=== PATIENT | male | born 1945 | race Caucasian/White ===

== ENCOUNTER → 2016-05-24 | Outpatient (CLI) | payer OTHER ==
[2016-05-24 08:22] LABS: ALT 29 U/L (21-72); AST 26 U/L (17-59); Cholesterol 184 mg/dL (<200); HDL Cholesterol 49 mg/dL (40-60); Triglycerides 187 mg/dL (<150)
== END | disposition home or self-care (01) ==
LOC: LABWHC1 07:37
PROVIDERS: ATTEND Internal Medicine Interventional Cardiology
DX: E78.2 Mixed hyperlipidemia (principal)
CPT/HCPCS: 36415; 80061; 84450; 84460

== ENCOUNTER → 2016-06-26 | Outpatient (CLI) | payer OTHER ==
[2016-06-26 10:38] LABS: CH 32.9; CHCM 34.9; HCT 41.1 % (39.0-53.0); HDW 3.15; HGB 14.3 gm/dL (13.0-17.5); MCH 32.9 pg (25.0-35.0); MCHC 34.7 g/dL (31.0-37.0); MCV 94.9 fL (80.0-100.0); Mean Platelet Volume 8.5; RBC 4.33 m/uL (4.30-5.90); RDW 13.3 % (11.5-15.5); WBC 4.1 k/uL (3.8-10.6)
[2016-06-26 10:59] LABS: Anion Gap 7 mmol/L; Blood Urea Nitrogen 20 mg/dL (9-20); Carbon Dioxide 29 mmol/L (22-30); Chloride 105 mmol/L (98-107); Non-African American GFR(MDRD) >60 (>60 ml/min/1.73 sqM); Potassium 4.7 mmol/L (3.5-5.1); Sodium 141 mmol/L (137-145)
== END | disposition home or self-care (01) ==
LOC: LABPAT 10:20
PROVIDERS: ATTEND Internal Medicine Interventional Cardiology
DX: Z01.812 Encounter for preprocedural laboratory examination (principal); I73.9 Peripheral vascular disease, unspecified
CPT/HCPCS: 80051; 82565; 84520; 85027

== ENCOUNTER 2016-07-04 07:12 | Day surgery (SDC) | payer OTHER ==
[2016-06-30 13:11] VITALS: BMI 33.0
[~2016-07-04 07:12] MED LIST: SODIUM CHLORIDE 0.9% 1,000 ML in EMPTY BAG 1 BAG IV ONE
[2016-07-04 07:48] VITALS: RESP 16; TEMP 98.7
[2016-07-04] MEDS ORDERED: METOPROLOL TARTRATE 5 MG/5 ML VIAL IVP ONE (08:03)
[2016-07-04] MEDS ORDERED: hydrALAZINE HCL 20 MG/ML 1 ML VIAL ONE (08:03)
[2016-07-04 08:07] LABS: Glucose,Whole Blood 178 mg/dL (75-99)
[2016-07-04] MEDS ORDERED: MIDAZOLAM 2 MG/2 ML VIAL IV ONE (10:06)
[2016-07-04] MEDS ORDERED: LIDOCAINE 2% INJ 20 MG/ML SQ ONE (10:09)
[2016-07-04] MEDS ORDERED: HYDROmorphone 2 MG/ML 1 ML SYRINGE IV ONE (10:14)
[2016-07-04] MEDS ORDERED: IODIXANOL 320 MG/ML 100 ML INTRAARTER ONE (10:21)
[2016-07-04] MEDS ORDERED: SODIUM CHLORIDE 0.9% 1,000 ML IV SCH (10:30)
--- NOTE | 2016-07-04 11:10 | CC ---
ABDOMINAL AORTOGRAM AND BILATERAL LOWER EXTREMITY DATE OF SERVICE: 07/04/2016 PERFORMING PHYSICIAN: JESSICA CARRERO MD, SALES ACCOUNT EXECUTIVE. PROCEDURE PERFORMED: 1. An abdominal aortogram. 2. Bilateral lower extremity runoff. INDICATION: This is a pleasant 71-year-old male patient who sees Dr. Rodrigues and Dr. Gonsales as an outpatient who was experiencing bilateral lower extremity discomfort, most prominent on the right side. The symptoms were severe enough to interfere with his daily activities. He had what seems to be a fem-pop bypass on the right side, was performed by Dr. Pollack a long time ago. The Doppler showed the occlusion of the fem-pop bypass. He was brought today to undergo an abdominal aortogram and bilateral lower extremity runoff. APPROACH: Left common femoral artery. COMPLICATIONS: None. LEVEL OF SEDATION: Moderate. PROCEDURE DESCRIPTION: After obtaining an informed consent, the patient was brought to the Cardiac Fire Protection Engineering Technician. The left common femoral artery was cannulated using micropuncture technique. The micropuncture wire passed easily, then I placed 6 Kenyan sheath in the left common femoral artery. Subsequently, I did an abdominal aortogram and bilateral lower extremity runoff using 5 Kenyan pigtail catheter which was initially placed at the level of the renal arteries, then it was pulled into above the bifurcation of the aorta to right and left common iliac arteries. The procedure was completed without any complication. SELECTIVE PERIPHERAL ANGIOGRAM: 1. The abdominal aorta appeared to have mild disease only. 2. COMMON ILIAC ARTERIES: The right and left common iliac arteries appeared to be calcified with mild disease only. 3. THE INTERNAL ILIAC ARTERIES: The right and left internal iliac arteries are patent. 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 4. THE EXTERNAL ILIAC ARTERIES: The right and left external iliac arteries appeared to have mild disease only. 5. THE COMMON FEMORAL ARTERIES: The right common femoral artery appeared to have a lesion just by the inguinal ligament, seems to be in the range of 70%. The left common femoral artery appeared to have mild disease only. 6. THE PROFUNDA: The right and left profunda are patent. 7. THE SFA: The right SFA appeared to be stumped right by the ostium and reconstitutes by the popliteal. The left SFA appeared to have diffuse disease up to about 70% to 80% in the proximal and midportion. 8. THE POPLITEAL: The right popliteal is occluded and the left popliteal appeared to have mild to moderate diffuse disease. 9. BELOW THE KNEE: There are 3 vessels runoff below the knee bilaterally with AT, PT and peroneal. CONCLUSION: 1. Mild aortoiliac disease. 2. Severe disease involving the right common femoral artery. 3. Occluded right superficial femoral artery. 4. Critical disease involving the left superficial femoral artery. 5. Normal runoff below the knee bilaterally. PLAN: 1. The patient will be scheduled to undergo a COLLAR FUSER of the right common femoral artery and at the same time attempting going through the right SFA. 2. Down the line, he needs to have a COLLAR FUSER of the left SFA as well.
--- NOTE | 2016-07-04 11:33 | IR ---
Fluoroscopy HISTORY: Pain 3.1 minutes fluoroscopy time supplied to the referring clinician. 117 intraoperative C-arm images do cument the procedure. See dictated report from cardiology.
[2016-07-04 13:36] VITALS: BP 147/67; PULSE 64
[2016-07-04 15:22] LABS: Glucose,Whole Blood 217 mg/dL (75-99)
== END 2016-07-04 18:13 | disposition home or self-care (01) ==
LOC: CATHCVL 07:12
PROVIDERS: ATTEND Internal Medicine Interventional Cardiology
DX: I70.311 Atherosclerosis of unspecified type of bypass graft(s) of the extremities with intermittent claudication, right leg (principal); I70.213 Atherosclerosis of native arteries of extremities with intermittent claudication, bilateral legs; Z87.891 Personal history of nicotine dependence; Z95.1 Presence of aortocoronary bypass graft; Z95.2 Presence of prosthetic heart valve; I10 Essential (primary) hypertension; E11.9 Type 2 diabetes mellitus without complications; Z79.4 Long term (current) use of insulin; E78.2 Mixed hyperlipidemia; Z79.02 Long term (current) use of antithrombotics/antiplatelets; Z79.82 Long term (current) use of aspirin; Z79.899 Other long term (current) drug therapy
CPT/HCPCS: 36200; 75625; 75716; C1769 ×5; C1894; J2001; J2250; J1170; J0360; Q9967

== ENCOUNTER → 2016-07-27 | Outpatient (CLI) | payer OTHER ==
[2016-07-27 11:46] LABS: CH 32.9; CHCM 33.2; HCT 46.9 % (39.0-53.0); HDW 2.72; HGB 15.2 gm/dL (13.0-17.5); MCH 32.3 pg (25.0-35.0); MCHC 32.4 g/dL (31.0-37.0); MCV 99.6 fL (80.0-100.0); Mean Platelet Volume 8.3; RBC 4.71 m/uL (4.30-5.90); RDW 13.4 % (11.5-15.5); WBC 4.5 k/uL (3.8-10.6)
[2016-07-27 11:56] LABS: Anion Gap 9 mmol/L; Blood Urea Nitrogen 18 mg/dL (9-20); Carbon Dioxide 24 mmol/L (22-30); Chloride 108 mmol/L (98-107); Non-African American GFR(MDRD) >60 (>60 ml/min/1.73 sqM); Potassium 4.9 mmol/L (3.5-5.1); Sodium 141 mmol/L (137-145)
== END | disposition home or self-care (01) ==
LOC: LABWHC1 11:15
PROVIDERS: ATTEND Internal Medicine Interventional Cardiology
DX: Z01.812 Encounter for preprocedural laboratory examination (principal); I73.9 Peripheral vascular disease, unspecified
CPT/HCPCS: 36415; 80051; 82565; 84520; 85027

== ENCOUNTER 2016-08-02 10:07 | Day surgery (SDC) | payer OTHER ==
[2016-07-28 14:59] VITALS: BMI 34.4
[~2016-08-02 10:07] MED LIST changes: +ALPRAZolam 0.25 MG TAB PO PRN; +ASPIRIN 325 MG TAB PO STA
[2016-08-02 10:33] LABS: Glucose,Whole Blood 163 mg/dL (75-99)
[2016-08-02] MEDS ORDERED: LIDOCAINE 2% INJ 20 MG/ML SQ ONE (12:12)
[2016-08-02] MEDS ORDERED: MIDAZOLAM 2 MG/2 ML VIAL IV ONE (12:13)
[2016-08-02] MEDS ORDERED: HEPARIN SODIUM 1,000 UNIT/ML VIAL IV ONE ×2 (12:18→14:59)
[2016-08-02] MEDS ORDERED: SODIUM CHLORIDE 0.9% 500 ML with niCARdipine 6.25 MG, NITROGLYCERIN-D5W PMX 0.05 MG, HE... IV ONE ×8 (12:21→15:30)
[2016-08-02] MEDS: fentaNYL (PF) 50 MCG/ML 2 ML AMP IV ONE ×2 (12:47→13:20)
[2016-08-02] MEDS: MIDAZOLAM 2 MG/2 ML VIAL IVP ONE ×3 (13:20→15:42)
[2016-08-02] MEDS ORDERED: MIDAZOLAM 2 MG/2 ML VIAL IVP ONE (13:20)
[2016-08-02] MEDS: HYDROmorphone 2 MG/ML 1 ML SYRINGE IV ONE ×2 (13:41→15:07)
[2016-08-02] MEDS: NITROGLYCERIN 1000MCG/10ML SYRINGE INTRAARTER ONE ×3 (15:23→16:31)
[2016-08-02] MEDS: niCARdipine Syringe (1,000 mcg/10 mL) INTRAARTER ONE ×3 (15:23→16:31)
[2016-08-02] MEDS: HYDROmorphone 2 MG/ML 1 ML SYRINGE IVP ONE ×2 (16:20→16:49)
[2016-08-02] MEDS ORDERED: CLOPIDOGREL 75 MG TAB PO ONE (16:45)
[2016-08-02] MEDS ORDERED: IODIXANOL 320 MG/ML 100 ML INTRAARTER ONE (16:49)
[2016-08-02] MEDS ORDERED: SODIUM CHLORIDE 0.9% 1,000 ML IV SCH (17:00)
[2016-08-02 17:25] LABS: Glucose,Whole Blood 131 mg/dL (75-99)
[2016-08-02] MEDS ORDERED: ATROPINE SULFATE 0.1 MG/ML 10ML SYRINGE ONE (20:08)
[2016-08-02] MEDS: HYDROcodone/APAP 10-325MG 1 EACH TAB PO PRN (20:09)
[2016-08-02 20:53] LABS: Glucose,Whole Blood 166 mg/dL (75-99)
[2016-08-02] MEDS: LOSARTAN 25 MG TAB PO SCH (20:57)
[2016-08-02] MEDS: CILOSTAZOL 100 MG TAB PO SCH (20:57)
[2016-08-02] MEDS: METOPROLOL TARTRATE 50 MG TAB PO SCH (20:57)
[2016-08-02] MEDS ORDERED: METHOCARBAMOL 750 MG TAB PO SCH (21:00)
[2016-08-02] MEDS ORDERED: INSULIN GLARGINE 100 UNIT/ML 10 ML VIAL SQ SCH (21:00)
[2016-08-02] MEDS ORDERED: ATORVASTATIN 80 MG TAB PO SCH (21:00)
[2016-08-03] MEDS: HYDROcodone/APAP 10-325MG 1 EACH TAB PO PRN (02:02)
[2016-08-03 05:58] LABS: Glucose,Whole Blood 170 mg/dL (75-99)
[2016-08-03 06:27] LABS: Non-African American GFR(MDRD) >60 (>60 ml/min/1.73 sqM)
[2016-08-03] MEDS ORDERED: CLOPIDOGREL 75 MG TAB PO SCH (09:00)
[2016-08-03] MEDS ORDERED: MONTELUKAST 10 MG TAB PO SCH (09:00)
[2016-08-03] MEDS ORDERED: METHOCARBAMOL 750 MG TAB PO SCH (09:00)
[2016-08-03] MEDS ORDERED: ASPIRIN 325 MG TAB PO SCH (09:00)
[2016-08-03] MEDS ORDERED: MAGNESIUM OXIDE 400 MG TAB PO SCH (09:00)
[2016-08-03] MEDS: CILOSTAZOL 100 MG TAB PO SCH (09:05)
[2016-08-03] MEDS: LOSARTAN 25 MG TAB PO SCH (09:06)
[2016-08-03] MEDS: METOPROLOL TARTRATE 50 MG TAB PO SCH (09:07)
[2016-08-03 11:30] VITALS: BP 135/65; PULSE 60; RESP 16; TEMP 975
[2016-08-03] MEDS ORDERED: MULTIVITAMINS, THERA 1 EACH TAB PO SCH (12:00)
[2016-08-03 12:01] LABS: Glucose,Whole Blood 138 mg/dL (75-99)
--- NOTE | 2016-08-05 11:48 | DS ---
DATE OF ADMISSION: 08/02/2016 DATE OF DISCHARGE: 08/03/2016 BRIEF HISTORY: This is a 71-year-old who was admitted to the hospital and underwent successful recannulization totally occluded fem to popliteal bypass. We ended doing stenting of the distal as well as proximal anastomosis. The procedure was performed from the left groin. The left groin was soft and nontender and without any bruises. The patient is going to be discharged home on dual antiplatelet therapy and statin. I will follow up with the patient in a week. The patient will be sent back to be seen and evaluated and followed by Dr. Rodrigues.
--- NOTE | 2016-08-07 22:05 | PCN ---
DATE OF PROCEDURE: 08/02/2016 PERFORMING PHYSICIAN: Chepe San M.D., economic consultant. PROCEDURES PERFORMED: 1. Selective right [id number] angiogram. 2. Selective right popliteal angiogram. 3. Selective right common femoral artery angiogram. 4. Selective right posterior tibial angiogram. 5. Intravascular ultrasound (IVUS) of the right common femoral artery. 6. Successful balloon angioplasty and stenting of the right femoropopliteal bypass. 7. Selective left common femoral artery angiogram. INDICATION: This is a pleasant 71-year-old gentleman who sees Dr. Rodrigues as an outpatient who is known to have severe PAD where he underwent in the past right femoropopliteal bypass. He was experiencing severe right leg discomfort related to claudication. He underwent an arterial duplex study which showed occluded right SFA with occluded right femoropopliteal bypass as well. He underwent a peripheral angiogram which confirmed the Doppler finding. He was brought today to undergo a ISSUER of the right SFA. APPROACH: Left common femoral artery. COMPLICATIONS: None. LEVEL OF SEDATION: Moderate, with sedation length of 4 hours. PROCEDURE DESCRIPTION: After obtaining informed consent, the patient was brought to the biological lab technician. The left common femoral artery was cannulated using micropuncture technique. The micropuncture wire passed easily. I placed initially an 11 cm 6 Rwandan sheath in the left common femoral artery. Subsequently I selected the right profunda using a 5 Rwandan RIM catheter with 0.035 Advantage wire. After that I exchanged my 11 cm sheath for a 70 cm sheath using an 0.035 Advantage wire. The tip of the sheath was positioned in the right external iliac artery. At that point anticoagulation was initiated using heparin, and the patient was given weight -based heparin. I attempted to cross the right SFA using multiple wires, including 0.014 Advantage wire, 0.014 Astato wire, 0.018 Neeraj wire, 0.018 Victory 18 wire, as well as an 0.035 Glidewire. Every time I advanced the wire, the wire went into the right femoropopliteal and would not cross the right SFA. At that point I decided to do an IVUS of the right common femoral artery to assess the actual stump of the right SFA. We did an intravascular ultrasound over an 0.014 wire, and I was able to see the small stump of the right SFA, and every time I fired the needle through the Bioneer device with IVUS, the needle was not able to cross that calcium which was seen by the ostial SFA. At that point I decided to come from down, so I accessed the right posterior tibial artery by putting in a 4 Rwandan sheath. I did continuously infuse heparin, Verapamil, and nitroglycerin. Subsequently I tried to cross the right SFA using an 0.014, 0.018, and 0.035 wire, and I was unable. At a matter of fact, I was able to go through the right femoral bypass from below and I was able to advance my wire all the way to the right common femoral artery. At that point I was able to snare my 0.014 Advantage wire from above. Then I exchanged my 0.014 wire for an 0.018 stainless steel wire. I did balloon angioplasty of the right femoropopliteal using 4.0 balloon. Subsequently I deployed 2 stents in the distal anastomosis and 1 stent in the proximal anastomosis. The body of the graft was looking decent. For the distal anastomosis I deployed a 5.5 x 80 and 6.0 x 80 Supera self-expandable stents. For the proximal anastomosis I deployed a 7.0 x 60 mm. The following angiogram showed excellent angiographic results. At that point the procedure was completed without any complication. POST-PROCEDURE MANAGEMENT: 1. Dual antiplatelet therapy. 2. Surveillance duplex study. 3. Follow up with the patient.
--- NOTE | 2016-08-09 13:21 | IR ---
EXAMINATION TYPE: IR stent intravas non coronary DATE OF EXAM: 08/08/2016 COMPARISON: NONE HISTORY: Peripheral vascular occlusive disease. Fluoroscopy was provided to the referring clinician. See dictated report from cardiology.
== END 2016-08-03 13:05 | disposition home or self-care (01) ==
LOC: CATHCVL 10:07 → 6SEL 16:37 → CATHCVL 08-03 13:05
PROVIDERS: ATTEND Internal Medicine Interventional Cardiology
DX: I77.9 Disorder of arteries and arterioles, unspecified (principal); T82.898A Other specified complication of vascular prosthetic devices, implants and grafts, initial encounter; I73.9 Peripheral vascular disease, unspecified; I10 Essential (primary) hypertension; E78.2 Mixed hyperlipidemia; E11.9 Type 2 diabetes mellitus without complications; I45.10 Unspecified right bundle-branch block; I25.10 Atherosclerotic heart disease of native coronary artery without angina pectoris; Z95.1 Presence of aortocoronary bypass graft; Z95.2 Presence of prosthetic heart valve; Z79.82 Long term (current) use of aspirin; Z79.4 Long term (current) use of insulin; Z79.891 Long term (current) use of opiate analgesic; Z79.899 Other long term (current) drug therapy; Z87.891 Personal history of nicotine dependence
CPT/HCPCS: 37226; 37252; 82565; 99152; 99153 ×17; C1769 ×14; C1894 ×2; C1773; C1725 ×3; C1876 ×2; C1887; C1753 ×2; J2001; J2250; J1170; J1644 ×2; Q9967; J3010

== ENCOUNTER → 2016-09-18 | Outpatient (CLI) | payer OTHER ==
[2016-09-18 08:07] LABS: ALT 42 U/L (21-72); AST 26 U/L (17-59); Cholesterol 170 mg/dL (<200); HDL Cholesterol 46 mg/dL (40-60); Triglycerides 147 mg/dL (<150)
== END | disposition home or self-care (01) ==
LOC: LABWHC1 07:23
PROVIDERS: ATTEND Internal Medicine Interventional Cardiology
DX: E78.2 Mixed hyperlipidemia (principal)
CPT/HCPCS: 36415; 80061; 84450; 84460

== ENCOUNTER → 2017-03-07 | Outpatient (CLI) | payer OTHER ==
--- NOTE | 2017-03-07 08:36 | XR ---
EXAMINATION TYPE: XR chest 2V DATE OF EXAM: 03/07/2017 COMPARISON: Prior chest x-ray 03/11/2011 HISTORY: Cough and congestion TECHNIQUE: Frontal and lateral views of the chest are obtained. FINDINGS: Patient is rotated and post median sternotomy. Heart size may be accentuated by technique. Patchy density at the left lung base, lingula may represent chronic change. Interval improvement in posterior blunting the costophrenic angle. No pneumothorax. Pulmonary vascularity and ajith not signif icantly changed. There are coronary artery calcifications. Question bronchial wall thickening. IMPRESSION: Correlate for bronchitis, follow-up as indicated. Chronic cardiomegaly.
== END | disposition home or self-care (01) ==
LOC: RADXRMAIN 06:42
PROVIDERS: ATTEND Family Medicine
DX: I51.7 Cardiomegaly (principal)
CPT/HCPCS: 71046

== ENCOUNTER → 2017-03-20 | Outpatient (CLI) | payer MEDICARE ==
[2017-03-20 07:04] LABS: Blood Urea Nitrogen 28 mg/dL (9-20)
--- NOTE | 2017-03-20 09:12 | CT ---
EXAMINATION TYPE: CT chest w con DATE OF EXAM: 03/20/2017 COMPARISON: Chest radiograph dated 03/07/2017 HISTORY: cough, abn CXR CT DLP: 807 mGycm. Automated Exposure Control for Dose Reduction was Utilized. TECHNIQUE: CT scan of the thorax is performed following with IV Contrast, patient injected with 100 mL of Omnipaque 300. FINDINGS: LUNGS: Somewhat low lung volumes accentuate the pulmonary vasculature. The lungs are grossly clear, t here is no concerning parenchymal mass. 3 mm pulmonary nodule along the right minor fissure is seen o n axial image 21, coronal image 33, and sagittal image 50. This may represent a. Fissural lymph node. Scattered areas of subsegmental atelectasis are noted, predominating dependently. No focal consolida tion is present. No bronchiectasis. There is no pleural effusion or pneumothorax seen. The tracheobr onchial tree is patent. MEDIASTINUM: There are no greater than 1 cm hilar or mediastinal lymph nodes. The heart is enlarged. Post-CABG changes of the chest are seen with severe knik coronary artery calcifications. No perica rdial effusion is seen. Ascending thoracic aorta and main pulmonary artery are within normal limits of size. OTHER: Small splenule seen adjacent to the knik spleen. Multiple gallstones layer within the gallbl adder body and neck. Left upper pole 1.9 cm partially exophytic renal cyst is incidentally noted. Mil d pancreatic atrophy is seen. Moderate calcific changes of the visualized abdominal aorta and its bra nches are present. Moderate multilevel degenerative changes of the thoracic spine are present. IMPRESSION: 1. 3 mm perifissural right pulmonary nodule favored to represent a benign perifissural lymph node. Fo llow-up CT could be performed in 12 months to evaluate for stability. 2. No focal consolidation, pleural effusion or pneumothorax. 3. Cholelithiasis and left renal cyst.
== END | disposition home or self-care (01) ==
LOC: RADCTMAIN 06:31
PROVIDERS: ATTEND Internal Medicine Sleep Medicine
DX: R91.1 Solitary pulmonary nodule (principal)
CPT/HCPCS: 82565; 84520; 71260; 36415; Q9967

== ENCOUNTER 2017-06-22 12:44 | Inpatient (IN) | payer MEDICARE ==
[2017-06-22] MEDS ORDERED: IBUPROFEN 600 MG TAB PO STA (13:35)
[2017-06-22] MEDS ORDERED: ACETAMINOPHEN TAB 500 MG TAB PO STA (13:35)
[2017-06-22] MEDS ORDERED: ceFAZolin IN SWFI 2 GM/20 ML SYRINGE IVP STA (13:38)
[2017-06-22] MEDS ORDERED: SODIUM CHLORIDE 0.45% 1,000 ML IV STA (13:40)
--- NOTE | 2017-06-22 14:03 | XR ---
EXAMINATION TYPE: XR foot complete LT DATE OF EXAM: 06/22/2017 COMPARISON: NONE HISTORY: First digit pain TECHNIQUE: Three views are submitted. FINDINGS: There is a comminuted intra-articular fracture of the distal phalanx first digit. Arthropathy of the first MTP joint noted. Calcaneal spurs are seen. Vascular calcifications noted. IMPRESSION: 1. Comminuted intra-articular fracture distal phalanx first digit.
--- NOTE | 2017-06-22 14:13 | ED ---
Lower Extremity Injury HPI <Jovany Brown - Last Filed: 06/22/17 15:02> - General Source: patient, RN notes reviewed, old records reviewed Mode of arrival: ambulatory Limitations: no limitations <Ana MCecelia - Last Filed: 06/22/17 15:25> - General Chief Complaint: Extremity Injury, Lower Stated Complaint: Toe injury Time Seen by Provider: 06/22/17 13:15 - History of Present Illness Initial Comments: This patient is a 72-year-old male with history of left great toe injury. He reports that 2 days ago he dropped a heavy piece of the tire and on his toe. He reports that he is diabetic and initially did not feel much pain from the injury. He came inside the house stenosis toes black and blue at that time. Yesterday followed up with his primary care provider and had an x-ray completed which he reported that there was fractures. There is evidence of some abrasions around the toe. He reports that his toe developed a significant blood blister and then popped. He went today to be reevaluated by his PCP. They sent him here due to an open fracture at this time. He does have a low- grade temperature. He has had no history of diabetic ulcers or infections. He does have neuropathy. He reports blood sugars have been running okay, within the mid 200s. (Cecelia Viramontes) - Related Data Home Medications Medication Instructions Recorded Confirmed HYDROcodone/APAP 10-325MG [[place] 1 tab PO QID PRN 04/23/14 06/22/17 10-325] Insulin Aspart [NovoLOG See Protocol SQ ACHS 04/23/14 06/22/17 (formulary)] Insulin Glargine [Lantus] 65 unit SQ HS 04/23/14 06/22/17 Methocarbamol [Robaxin] 750 mg PO TID 04/23/14 06/22/17 Metoprolol Tartrate [Lopressor] 50 mg PO BID 04/23/15 06/22/17 Montelukast [Singulair] 10 mg PO HS 04/23/15 06/22/17 Atorvastatin [Lipitor] 80 mg PO HS 06/30/16 06/22/17 Magnesium Oxide [Mag-Ox] 400 mg PO DAILY 06/30/16 06/22/17 Aspirin EC [Ecotrin] 325 mg PO DAILY 06/22/17 06/22/17 Cephalexin [Keflex] 500 mg PO Q6HR 06/22/17 06/22/17 Isosorbide Mononitrate ER [Imdur] 60 mg PO DAILY 06/22/17 06/22/17 Losartan Potassium 100 mg PO DAILY 06/22/17 06/22/17 Multivit-Min/FA/Lycopen/Lutein 1 tab PO DAILY 06/22/17 06/22/17 [Centrum Silver Men Tablet] Ranitidine HCl [Zantac] 150 mg PO BID 06/22/17 06/22/17 Previous Rx's Medication Instructions Recorded Clopidogrel [Plavix] 75 mg PO DAILY #90 tab 08/03/16 Allergies Allergy/AdvReac Type Severity Reaction Status Date / Time No Known Allergies Allergy Verified 06/22/17 13:38 Review of Systems ROS Other: All systems not noted in ROS Statement are negative. <Jovnay Brown - Last Filed: 06/22/17 15:02> ROS Other: All systems not noted in ROS Statement are negative. <Cecelia Viramontes - Last Filed: 06/22/17 15:25> ROS Statement: Those systems with pertinent positive or pertinent negative responses have been documented in the HPI. Past Medical History Past Medical History: Coronary Artery Disease (CAD), CVA/TIA, Diabetes Mellitus , Hyperlipidemia, Hypertension, Osteoarthritis (OA) Additional Past Medical History / Comment(s): CAD status post CABG with SVG to OM 2 and SVG to RCA in 1998 and 2009, AVR, PAD,diabetic neuropathy. History of Any Multi-Drug Resistant Organisms: None Reported Past Surgical History: Adenoidectomy, Cardiac Valve Replacement, Coronary Bypass /CABG, Heart Catheterization, Joint Replacement, Tonsillectomy Additional Past Surgical History / Comment(s): CABG 2 SVG to OM 2 and SVG to RCA, AVR, right leg femoral pop bypass 1995, left PTBA 1995, aortic stent, colonoscopy 2012 showed colonic polyps, left carotid endarterectomy 1998. TOTAL LEFT HIP, JESSEE CATARACT SX Past Anesthesia/Blood Transfusion Reactions: No Reported Reaction Past Psychological History: No Psychological Hx Reported Smoking Status: Former smoker Past Alcohol Use History: None Reported Past Drug Use History: None Reported - Past Family History Mother Family Medical History: Cancer, Pulmonary Embolus Additional Family Medical History / Comment(s): ESOPHAGUS Father Family Medical History: Coronary Artery Disease (CAD), Diabetes Mellitus Brother(s) Family Medical History: No Reported History Sister(s) Family Medical History: No Reported History Son(s) Family Medical History: No Reported History Daughter(s) Family Medical History: No Reported History <Cecelia Viramontes - Last Filed: 06/22/17 15:25> General Exam <Jovany Brown - Last Filed: 06/22/17 15:02> Limitations: no limitations General appearance: alert, in no apparent distress Head exam: Present: atraumatic, normocephalic, normal inspection Eye exam: Present: normal appearance ENT exam: Present: normal exam, mucous membranes moist Neck exam: Present: normal inspection. Absent: tenderness, meningismus, lymphadenopathy Respiratory exam: Present: normal lung sounds bilaterally. Absent: respiratory distress, wheezes, rales, rhonchi, stridor Cardiovascular Exam: Present: regular rate, normal rhythm, normal heart sounds. Absent: systolic murmur, diastolic murmur, rubs, gallop, clicks GI/Abdominal exam: Present: soft, normal bowel sounds. Absent: distended, tenderness, guarding, rebound, rigid Left Ankle exam: Present: normal inspection, full ROM Foot/Toe exam: Present: tenderness, swelling, abrasion (Patient has evidence of 2 abrasions over the right great toe where the blood blister had opened.), erythema (Patient is some minor erythema extending from the great toe of the dorsum of the foot. This is outlined. Right great toe is very swollen and ecchymotic. Pain with range of motion. The rest the toes appear within normal limits.). Absent: normal inspection, full ROM Neurovascular tendon exam: Present: no vascular compromise Gait: observed and limited by pain Back exam: Present: normal inspection Neurological exam: Present: alert, oriented X3, CN II-XII intact Psychiatric exam: Present: normal affect, normal mood <Cecelia Viramontes - Last Filed: 06/22/17 15:25> - General Exam Comments Initial Comments: 72-year-old male. Alert. No acute distress. (Cecelia Viramontes) Course <Jovany Brown - Last Filed: 06/22/17 15:02> <Cecelia Viramontes - Last Filed: 06/22/17 15:25> Vital Signs 06/22/17 13:06 Temperature 99.8 F H Pulse Rate 69 Respiratory 18 Rate Blood Pressure 146/61 O2 Sat by Pulse 98 Oximetry - Reevaluation(s) Reevaluation #1: 06/22/17 15:02 Patient was reevaluated by myself, Dr. Brown. Patient did drop a brake rotor on his left great toe several days ago. Patient does have cellulitis extending up towards the ankle. Patient does have swelling and discoloration, dark red of the toe. There is some superficial skin breakdown from patient reported blister. Patient states he did see Dr. Gonsales and was sent for admission. Case was discussed in detail with Dr. Castle, who will admit for Dr. Gonsales. She does recommend Zosyn and vancomycin as well as consult with Dr. Willis. Patient does not meet sepsis criteria. (Jovayn Brown) Medical Decision Making - Lab Data Result diagrams: 06/22/17 14:00 06/22/17 14:00 <Jovany Brown - Last Filed: 06/22/17 15:02> - Lab Data Result diagrams: 06/22/17 14:00 06/22/17 14:00 - Radiology Data Radiology results: report reviewed <Cecelia Viramontes - Last Filed: 06/22/17 15:25> - Medical Decision Making 72-year-old male presents with left great toe pain. He dropped a heavy piece of equipment on Sunday. He went to his primary care doctor and was diagnosed with fracture. He had a blood blister that now open. He was sent here further evaluation due to concerns for possible open fracture. He did have a low-grade temperature 99.9. Some minor erythema going up the foot. I did give the patient 2 g of Kefzol IV. Patient's labwork was reviewed and relatively unremarkable. Normal white blood cell count. Currently pending CRP. Patient will be started on IV vancomycin and Zosyn. Dr. Brown also examined the patient. At this time I'll put the patient with bacitracin and a dressing over the foot. Dr. Brown discussed the case with Dr. Castle. Consults infectious disease Dr. Willis. (Cecelia Viramontes) - Lab Data Lab Results 06/22/17 06/22/17 06/22/17 Range/Units 14:00 14:00 14:00 WBC 6.7 (3.8-10.6) k/uL RBC 3.99 L (4.30-5.90) m/uL Hgb 12.5 L (13.0-17.5) gm/dL Hct 37.4 L (39.0-53.0) % MCV 93.8 (80.0-100.0) fL MCH 31.4 (25.0-35.0) pg MCHC 33.5 (31.0-37.0) g/dL RDW 13.4 (11.5-15.5) % Plt Count 178 (150-450) k/uL Neutrophils % 76 % Lymphocytes % 12 % Monocytes % 8 % Eosinophils % 3 % Basophils % 0 % Neutrophils # 5.1 (1.3-7.7) k/uL Lymphocytes # 0.8 L (1.0-4.8) k/uL Monocytes # 0.5 (0-1.0) k/uL Eosinophils # 0.2 (0-0.7) k/uL Basophils # 0.0 (0-0.2) k/uL Sodium 141 (137-145) mmol/L Potassium 4.6 (3.5-5.1) mmol/L Chloride 106 (98-107) mmol/L Carbon Dioxide 24 (22-30) mmol/L Anion Gap 11 mmol/L BUN 18 (9-20) mg/dL Creatinine 0.80 (0.66-1.25) mg/dL Est GFR (CKD-EPI)AfAm >90 (>60 ml/min/1.73 sqM) Est GFR (CKD-EPI)NonAf >90 (>60 ml/min/1.73 sqM) Glucose 220 H (74-99) mg/dL Plasma Lactic Acid [place]ton 1.5 (0.7-2.0) mmol/L Calcium 8.9 (8.4-10.2) mg/dL Total Bilirubin 0.8 (0.2-1.3) mg/dL AST 22 (17-59) U/L ALT 24 (21-72) U/L Alkaline Phosphatase 95 (38-126) U/L C-Reactive Protein (<10.0) mg/L Total Protein 5.8 L (6.3-8.2) g/dL Albumin 3.4 L (3.5-5.0) g/dL 06/22/17 Range/Units 14:00 WBC (3.8-10.6) k/uL RBC (4.30-5.90) m/uL Hgb (13.0-17.5) gm/dL Hct (39.0-53.0) % MCV (80.0-100.0) fL MCH (25.0-35.0) pg MCHC (31.0-37.0) g/dL RDW (11.5-15.5) % Plt Count (150-450) k/uL Neutrophils % % Lymphocytes % % Monocytes % % Eosinophils % % Basophils % % Neutrophils # (1.3-7.7) k/uL Lymphocytes # (1.0-4.8) k/uL Monocytes # (0-1.0) k/uL Eosinophils # (0-0.7) k/uL Basophils # (0-0.2) k/uL Sodium (137-145) mmol/L Potassium (3.5-5.1) mmol/L Chloride (98-107) mmol/L Carbon Dioxide (22-30) mmol/L Anion Gap mmol/L BUN (9-20) mg/dL Creatinine (0.66-1.25) mg/dL Est GFR (CKD-EPI)AfAm (>60 ml/min/1.73 sqM) Est GFR (CKD-EPI)NonAf (>60 ml/min/1.73 sqM) Glucose (74-99) mg/dL Plasma Lactic Acid [place] (0.7-2.0) mmol/L Calcium (8.4-10.2) mg/dL Total Bilirubin (0.2-1.3) mg/dL AST (17-59) U/L ALT (21-72) U/L Alkaline Phosphatase (38-126) U/L C-Reactive Protein 36.7 H (<10.0) mg/L Total Protein (6.3-8.2) g/dL Albumin (3.5-5.0) g/dL - Radiology Data Foot x-ray shows comminuted intra-articular fracture of the distal phalanx first digit. (Cecelia Viramontes) Disposition <Jovany Brown - Last Filed: 06/22/17 15:02> Is patient prescribed a controlled substance at d/c from ED?: No If prescribed controlled substance>3 days was MAPS reviewed?: No When asked, does pt state using other controlled substances?: No Time of Disposition: 15:24 <Cecelia Viramontes - Last Filed: 06/22/17 15:25> Clinical Impression: Toe fracture, left, Open fracture of toe of left foot, Diabetes, Neuropathy Disposition: ADMITTED IP TO THIS [facility] Condition: Good Referrals: Slade Gonsales MD [Primary Care Provider] - 1-2 days
[2017-06-22] MEDS: SODIUM CHLORIDE 0.9% 500 ML IV SCH ×3 (14:15→14:17)
[2017-06-22 14:20] LABS: Basophils % (A) 0 %; Eosinophils # (A) 0.2 k/uL (0-0.7); Eosinophils % (A) 3 %; HCT 37.4 % (39.0-53.0); HGB 12.5 gm/dL (13.0-17.5); Lymphocytes # (A) 0.8 k/uL (1.0-4.8); Lymphocytes % (A) 12 %; MCH 31.4 pg (25.0-35.0); MCHC 33.5 g/dL (31.0-37.0); MCV 93.8 fL (80.0-100.0); Mean Platelet Volume 8.7; Monocytes # (A) 0.5 k/uL (0-1.0); Monocytes % (A) 8 %; Neutrophils # (A) 5.1 k/uL (1.3-7.7); Neutrophils % (A) 76 %; Platelet Count 178 k/uL (150-450); RBC 3.99 m/uL (4.30-5.90); RDW 13.4 % (11.5-15.5); WBC 6.7 k/uL (3.8-10.6)
[2017-06-22 14:31] LABS: ALT 24 U/L (21-72); AST 22 U/L (17-59); Albumin 3.4 g/dL (3.5-5.0); Alkaline Phosphatase 95 U/L (38-126); Anion Gap 11 mmol/L; Blood Urea Nitrogen 18 mg/dL (9-20); Calcium 8.9 mg/dL (8.4-10.2); Carbon Dioxide 24 mmol/L (22-30); Chloride 106 mmol/L (98-107); Glucose 220 mg/dL (74-99); Potassium 4.6 mmol/L (3.5-5.1); Sodium 141 mmol/L (137-145); Total Bilirubin 0.8 mg/dL (0.2-1.3); Total Protein 5.8 g/dL (6.3-8.2)
[2017-06-22] MEDS ORDERED: PIPERACILLIN-TAZOBACTAM 3.375 GM in DEXTROSE/WATER 1 50ML.BAG IVPB STA (15:09)
[2017-06-22] MEDS ORDERED: VANCOMYCIN IV PER PHARMACY 1 EACH MISC MISCELLANE PRN (15:09)
[2017-06-22] MEDS ORDERED: VANCOMYCIN 2,000 MG in SODIUM CHLORIDE 0.9% 500 ML IVPB STA (15:17)
[2017-06-22] MEDS ORDERED: oxyCODONE-APAP 5-325MG 1 EACH TAB PO PRN (15:26)
[2017-06-22] MEDS ORDERED: KETOROLAC 30 MG/ML 1 ML VIAL IVP PRN (15:26)
[2017-06-22] MEDS ORDERED: NALOXONE 0.4 MG/ML 1 ML VIAL IV PRN (15:26)
[2017-06-22] MEDS ORDERED: traMADol 50 MG TAB PO PRN (15:26)
[2017-06-22] MEDS ORDERED: IBUPROFEN 400 MG TAB PO PRN (15:26)
[2017-06-22] MEDS ORDERED: ONDANSETRON 4 MG/2 ML VIAL IVP PRN (15:26)
[2017-06-22] MEDS ORDERED: ACETAMINOPHEN TAB 325 MG TAB PO PRN (15:26)
--- NOTE | 2017-06-22 16:32 | P.HPIM ---
History of Present Illness H&P Date: 06/22/17 Chief Complaint: toe injury 72 years old male patient of Dr. Gonsales with past medical history of coronary artery disease status post CABG with SVG to OM and SVG to RCA in 1998 and 2009, history of aortic valve replacement, peripheral artery disease status post right leg femoral bypass 1995 followed by stenting by Dr. Baker in 2017, insulin -dependent diabetes, history of TIA post carotid endarterectomy on the left side , history of carotid stenosis complete occlusion on the right, history of diabetic neuropathy, ex-smoker, hyperlipidemia, hypertension comes in today after he accidentally dropped a heavy piece of tire on his left lower extremity. He saw his primary care physician yesterday as he developed a significant blood blister, x-ray of the foot was done and patient had a follow- up appointment today with the primary care physician who sent him here. Patient denies any fever or chills but does endorse sweating. Vitals obtained in the ER suggested temp of 99.8, pulse rate 69, blood pressure 146/71. Labs suggested a hemoglobin of 12.5, glucose 220 lactic acid was 1.5, CRP 36.7. Patient initiated on broad-spectrum antibiotics with vancomycin and Zosyn. Orthopedic and infectious disease consulted. Review of Systems Constitutional: Denies chills, Denies fever, Denies lethargy, Denies malaise, Denies poor appetite, Denies weakness, Denies weight loss Eyes: denies decreased vision, denies diplopia, denies discharge, denies pain Ears: deny: decreased hearing Ears, nose, mouth and throat: Denies dental pain, Denies headache, Denies nasal discharge, Denies nose pain Cardiovascular: Denies chest pain, Denies decreased exercise tolerance, Denies edema, Denies high blood pressure, Denies irregular heart beat, Denies palpitations, Denies paroxysmal nocturnal dyspnea, Denies rapid heart beat, Denies shortness of breath Respiratory: Denies congestion, Denies cough, Denies cough with sputum, Denies dyspnea, Denies home oxygen, Denies wheezing Gastrointestinal: Denies abdominal pain, Denies change in bowel habits, Denies coffee ground emesis, Denies early satiety, Denies excessive gas, Denies heartburn, Denies hematemesis, Denies hematochezia, Denies loss of appetite, Denies nausea, Denies vomiting Genitourinary: Denies dysuria, Denies flank pain, Denies kidney stones, Denies menorrhagia, Denies urgency, Denies urinary frequency Musculoskeletal: Endorses some pain in the left lower extremity Denies gait dysfunction, Denies limitation of motion, Denies morning stiffness, endorses muscle cramps Integumentary: Denies rash, Denies wounds, Denies brittle nails, Denies change in hair/nails, Denies darkening of skin Neurological: Denies balance difficulties, Denies change in speech, Denies double vision, Denies gait dysfunction, Denies loss of vision, Denies motor disturbance, Denies numbness, Denies paralysis, Denies paresthesias, Denies seizures Psychiatric: Denies anxiety, Denies depression Endocrine: Denies excessive sweating, Denies excessive thirst, Denies high blood sugars, Denies palpitations Hematologic/Lymphatic: Denies easy bruising, Denies lymphadenopathy Past Medical History Past Medical History: Coronary Artery Disease (CAD), CVA/TIA, Diabetes Mellitus , Hyperlipidemia, Hypertension, Osteoarthritis (OA) Additional Past Medical History / Comment(s): CAD status post CABG with SVG to OM 2 and SVG to RCA in 1998 and 2009, AVR, PAD,diabetic neuropathy. History of Any Multi-Drug Resistant Organisms: None Reported Past Surgical History: Adenoidectomy, Cardiac Valve Replacement, Coronary Bypass /CABG, Heart Catheterization, Joint Replacement, Tonsillectomy Additional Past Surgical History / Comment(s): CABG 2 SVG to OM 2 and SVG to RCA, AVR, right leg femoral pop bypass 1995, left PTBA 1995, aortic stent, colonoscopy 2012 showed colonic polyps, left carotid endarterectomy 1998. TOTAL LEFT HIP, JESSEE CATARACT SX Past Anesthesia/Blood Transfusion Reactions: No Reported Reaction Past Psychological History: No Psychological Hx Reported Smoking Status: Former smoker Past Alcohol Use History: None Reported Past Drug Use History: None Reported - Past Family History Mother Family Medical History: Cancer, Pulmonary Embolus Additional Family Medical History / Comment(s): ESOPHAGUS Father Family Medical History: Coronary Artery Disease (CAD), Diabetes Mellitus Brother(s) Family Medical History: No Reported History Sister(s) Family Medical History: No Reported History Son(s) Family Medical History: No Reported History Daughter(s) Family Medical History: No Reported History Medications and Allergies Home Medications Medication Instructions Recorded Confirmed Type HYDROcodone/APAP 10-325MG [Protivin 1 tab PO QID PRN 04/23/14 06/22/17 History 10-325] Insulin Aspart [NovoLOG See Protocol SQ ACHS 04/23/14 06/22/17 History (formulary)] Insulin Glargine [Lantus] 65 unit SQ HS 04/23/14 06/22/17 History Methocarbamol [Robaxin] 750 mg PO TID 04/23/14 06/22/17 History Metoprolol Tartrate [Lopressor] 50 mg PO BID 04/23/15 06/22/17 History Montelukast [Singulair] 10 mg PO HS 04/23/15 06/22/17 History Atorvastatin [Lipitor] 80 mg PO HS 06/30/16 06/22/17 History Magnesium Oxide [Mag-Ox] 400 mg PO DAILY 06/30/16 06/22/17 History Clopidogrel [Plavix] 75 mg PO DAILY #90 tab 08/03/16 06/22/17 Rx Aspirin EC [Ecotrin] 325 mg PO DAILY 06/22/17 06/22/17 History Cephalexin [Keflex] 500 mg PO Q6HR 06/22/17 06/22/17 History Isosorbide Mononitrate ER [Imdur] 60 mg PO DAILY 06/22/17 06/22/17 History Losartan Potassium 100 mg PO DAILY 06/22/17 06/22/17 History Multivit-Min/FA/Lycopen/Lutein 1 tab PO DAILY 06/22/17 06/22/17 History [Centrum Silver Men Tablet] Ranitidine HCl [Zantac] 150 mg PO BID 06/22/17 06/22/17 History Allergies Allergy/AdvReac Type Severity Reaction Status Date / Time No Known Allergies Allergy Verified 06/22/17 13:38 Physical Exam Vitals: Vital Signs Temp Pulse Resp BP Pulse Ox 06/22/17 13:06 99.8 F H 69 18 146/61 98 Intake and Output 06/22/17 06/22/17 06/22/17 06:59 14:59 22:59 Other: Weight 109.769 kg - Constitutional General appearance: cooperative, no acute distress, obese - EENT Eyes: anicteric sclerae, PERRLA, normal appearance ENT: hearing grossly normal - Neck Neck: no lymphadenopathy, normal ROM, no other, no rigidity, no stridor, no thyromegaly - Respiratory Respiratory: bilateral: CTA, negative: diminished, dullness, rales, rhonchi - Cardiovascular Rhythm: regular Heart sounds: normal: S1, S2 Abnormal Heart Sounds: 3/5 systolic murmur, no diastolic murmur, no rub, no S3 Gallop, no S4 Gallop, no click, no other - Gastrointestinal General gastrointestinal: normal bowel sounds, soft, nontender - Integumentary Integumentary: Significant swelling of the first toe on the left with peeling of the skin on the dorsum surface of the toe. Nail is intact. Peripheral pulses are palpable redness is limited to the dorsum and plantar aspect of the toe and goes up till mid foot slight warm to touch. Neurovascular function intact - Neurologic Neurologic: CNII-XII intact - Musculoskeletal Musculoskeletal: gait not assessed, strength equal bilaterally - Psychiatric Psychiatric: A&O x's 3, appropriate affect Results CBC & Chem 7: 06/22/17 14:00 06/22/17 14:00 Labs: Abnormal Lab Results - Last 24 Hours (Table) 06/22/17 06/22/17 06/22/17 Range/Units 14:00 14:00 14:00 RBC 3.99 L (4.30-5.90) m/uL Hgb 12.5 L (13.0-17.5) gm/dL Hct 37.4 L (39.0-53.0) % Lymphocytes # 0.8 L (1.0-4.8) k/uL Glucose 220 H (74-99) mg/dL C-Reactive Protein 36.7 H (<10.0) mg/L Total Protein 5.8 L (6.3-8.2) g/dL Albumin 3.4 L (3.5-5.0) g/dL Thrombosis Risk Factor Assmnt - DVT/VTE Prophylaxis DVT/VTE Prophylaxis: Mechanical Prophylaxis ordered Assessment and Plan Plan: #1 left comminuted intra-articular fracture distal phalanx first digit post trauma with superficial cellulitis. Continue dry dressing. Nonweightbearing on left lower extremity until seen by orthopedics. Neurovascular function intact. Continue vancomycin and Zosyn. Infectious disease consulted #2 coronary artery disease status post CABG 1998 and 2009. Currently chest pain -free. Continue aspirin, Lipitor 80 mg daily at bedtime, Plavix 75 mg daily, losartan, metoprolol 50 mg po BID #3 insulin-dependent diabetes with diabetic neuropathy continue insulin sliding scale. Lantus 50 units at bedtime reduced from 65 units taken at home. #4 hypertension continue losartan and metoprolol at the current dose #5 aortic valve replacement, stable #6 GERD treated artery stenosis status post left carotid endarterectomy, total occlusion on the right. Continue aspirin and Plavix #7 peripheral artery disease status post right left femoral popliteal bypass in 1995 with left PTB in 1995 stenting of the occluded femoral to popliteal bypass in July 2016. Continue Plavix #8 hyperlipidemia continue Lipitor 80 mg by mouth daily #9 history of tobacco abuse quit in 1998. No history of wheezing or shortness of breath on examination. Patient does complain of cough and will initiate Tessalon Perles #10 Muscle cramps continue methocarbamol 3 times a day #11 hip ostial arthritis continue Protivin for pain control CODE STATUS full code Disposition patient need 1-2 inpatient nights for IV antibiotics
[2017-06-22 17:47] LABS: Glucose,Whole Blood 138 mg/dL (75-99)
[2017-06-22] MEDS: INSULIN ASPART 100 UNIT/ML 1 ML 10 ML VIAL SQ SCH ×2 (17:50→21:00)
[2017-06-22 20:36] LABS: Glucose,Whole Blood 185 mg/dL (75-99)
[2017-06-22] MEDS: SODIUM CHLORIDE 0.45% 1,000 ML IV SCH (21:02)
[2017-06-22] MEDS: METHOCARBAMOL 750 MG TAB PO SCH (21:04)
[2017-06-22] MEDS: METOPROLOL TARTRATE 50 MG TAB PO SCH (21:04)
[2017-06-22] MEDS: MONTELUKAST 10 MG TAB PO SCH (21:04)
[2017-06-22] MEDS: INSULIN DETEMIR 100 UNIT/ML 10 ML VIAL SQ SCH (21:04)
[2017-06-22] MEDS: FAMOTIDINE 20 MG TAB PO SCH (21:04)
[2017-06-22] MEDS: ATORVASTATIN 80 MG TAB PO SCH (21:04)
[2017-06-22] MEDS: VANCOMYCIN 1,750 MG in SODIUM CHLORIDE 0.9% 250 ML IVPB SCH (23:15)
[2017-06-23 04:03] LABS: Hemoglobin A1C 7.2 % (4.0-6.0)
[2017-06-23] MEDS: SODIUM CHLORIDE 0.45% 1,000 ML IV SCH ×3 (04:54→20:16)
[2017-06-23 07:15] LABS: Glucose,Whole Blood 157 mg/dL (75-99)
[2017-06-23] MEDS: ASPIRIN 325 MG TAB PO SCH (08:31)
[2017-06-23] MEDS: INSULIN ASPART 100 UNIT/ML 1 ML 10 ML VIAL SQ SCH ×5 (08:31→21:59)
[2017-06-23] MEDS: CLOPIDOGREL 75 MG TAB PO SCH (08:31)
[2017-06-23] MEDS: ISOSORBIDE MONONITRATE ER 60 MG TAB.ER.24H PO SCH (08:32)
[2017-06-23] MEDS: METHOCARBAMOL 750 MG TAB PO SCH ×3 (08:32→20:14)
[2017-06-23] MEDS: LOSARTAN 50 MG TAB PO SCH (08:32)
[2017-06-23] MEDS: METOPROLOL TARTRATE 50 MG TAB PO SCH ×2 (08:32→20:15)
[2017-06-23] MEDS: FAMOTIDINE 20 MG TAB PO SCH ×2 (08:32→20:13)
[2017-06-23] MEDS: PANTOPRAZOLE 40 MG/10 ML VIAL IV SCH (08:33)
[2017-06-23] MEDS: HYDROcodone/APAP 10-325MG 1 EACH TAB PO PRN (08:44)
[2017-06-23 08:50] LABS: Basophils % (A) 1 %; Eosinophils # (A) 0.2 k/uL (0-0.7); Eosinophils % (A) 4 %; HCT 39.3 % (39.0-53.0); HGB 13.1 gm/dL (13.0-17.5); Lymphocytes # (A) 0.5 k/uL (1.0-4.8); Lymphocytes % (A) 9 %; MCH 31.5 pg (25.0-35.0); MCHC 33.4 g/dL (31.0-37.0); MCV 94.4 fL (80.0-100.0); Mean Platelet Volume 8.1; Monocytes # (A) 0.4 k/uL (0-1.0); Monocytes % (A) 6 %; Neutrophils # (A) 4.5 k/uL (1.3-7.7); Neutrophils % (A) 78 %; Platelet Count 153 k/uL (150-450); RBC 4.17 m/uL (4.30-5.90); RDW 13.3 % (11.5-15.5); WBC 5.7 k/uL (3.8-10.6)
--- NOTE | 2017-06-23 08:57 | P.CNOR ---
History of Present Illness - [facility] Consult date: 06/23/17 Requesting physician: Janel Mairo Consult reason: fracture History of present illness: Patient is a pleasant 72-year-old male seen at bedside this morning. Orthopedics was consulted for his left great toe distal phalanx fracture. He states that he dropped a disc brake on his toe on 06/20/2017. The next morning he had swelling and bruising. This had worsened on Sunday, 2017 where he presented to the emergency department. He was admitted for further evaluation and antibiotic coverage due to having break in the skin along with crush type injury to the distal phalanx of the great toe. He states his symptoms and swelling are improved today. He denies any new numbness or tingling. He is diabetic and has had chronic peripheral neuropathy. He has no foot or ankle pain. He has no other complaints. Review of systems is negative for fever, chills, chest pain, calf pain, shortness of breath, nausea, vomiting , dizziness, headaches, slurred speech or other. Review of Systems All systems: negative Constitutional: Denies chills, Denies fever Eyes: denies blurred vision, denies pain Ears, nose, mouth and throat: Denies headache, Denies sore throat Cardiovascular: Denies chest pain, Denies shortness of breath Respiratory: Denies cough Gastrointestinal: Denies abdominal pain, Denies diarrhea, Denies nausea, Denies vomiting Musculoskeletal: Denies myalgias Integumentary: Denies pruritus, Denies rash Neurological: Denies numbness, Denies weakness Psychiatric: Denies anxiety, Denies depression Endocrine: Denies fatigue, Denies weight change Past Medical History Past Medical History: Asthma, Coronary Artery Disease (CAD), CVA/TIA, Diabetes Mellitus, Hyperlipidemia, Hypertension, Osteoarthritis (OA) Additional Past Medical History / Comment(s): CAD status post CABG with SVG to OM 2 and SVG to RCA in 1998 and 2009, AVR, PAD,diabetic neuropathy.murmur, pt stated never finsihed his sleep study. "told he had a stroke and occ will still slur a word here and there History of Any Multi-Drug Resistant Organisms: None Reported Past Surgical History: Adenoidectomy, Cardiac Valve Replacement, Coronary Bypass /CABG, Heart Catheterization, Joint Replacement, Tonsillectomy Additional Past Surgical History / Comment(s): CABG 2 SVG to OM 2 and SVG to RCA, AVR, right leg femoral pop bypass 1995, left PTBA 1995, aortic stent, colonoscopy 2012 showed colonic polyps, left carotid endarterectomy 1998. TOTAL LEFT HIP, JESSEE CATARACT SX-lens implants Past Anesthesia/Blood Transfusion Reactions: No Reported Reaction Smoking Status: Former smoker - Past Family History Mother Family Medical History: Cancer, Pulmonary Embolus Additional Family Medical History / Comment(s): ESOPHAGUS Father Family Medical History: Coronary Artery Disease (CAD), Diabetes Mellitus Brother(s) Family Medical History: No Reported History Sister(s) Family Medical History: No Reported History Son(s) Family Medical History: No Reported History Daughter(s) Family Medical History: No Reported History Medications and Allergies Home Medications Medication Instructions Recorded Confirmed Type HYDROcodone/APAP 10-325MG [[place] 1 tab PO QID PRN 04/23/14 06/22/17 History 10-325] Insulin Aspart [NovoLOG See Protocol SQ ACHS 04/23/14 06/22/17 History (formulary)] Insulin Glargine [Lantus] 65 unit SQ HS 04/23/14 06/22/17 History Methocarbamol [Robaxin] 750 mg PO TID 04/23/14 06/22/17 History Metoprolol Tartrate [Lopressor] 50 mg PO BID 04/23/15 06/22/17 History Montelukast [Singulair] 10 mg PO HS 04/23/15 06/22/17 History Atorvastatin [Lipitor] 80 mg PO HS 06/30/16 06/22/17 History Magnesium Oxide [Mag-Ox] 400 mg PO DAILY 06/30/16 06/22/17 History Clopidogrel [Plavix] 75 mg PO DAILY #90 tab 08/03/16 06/22/17 Rx Aspirin EC [Ecotrin] 325 mg PO DAILY 06/22/17 06/22/17 History Cephalexin [Keflex] 500 mg PO Q6HR 06/22/17 06/22/17 History Isosorbide Mononitrate ER [Imdur] 60 mg PO DAILY 06/22/17 06/22/17 History Losartan Potassium 100 mg PO DAILY 06/22/17 06/22/17 History Multivit-Min/FA/Lycopen/Lutein 1 tab PO DAILY 06/22/17 06/22/17 History [Centrum Silver Men Tablet] Ranitidine HCl [Zantac] 150 mg PO BID 06/22/17 06/22/17 History Allergies Allergy/AdvReac Type Severity Reaction Status Date / Time No Known Allergies Allergy Verified 06/22/17 13:38 Physical Examination Inspection of the left foot and great toe shows resolving hematoma/ecchymoses. There is blister-type open wounds at the dorsum and volar aspects of the great toe. There is no bony deformity. There is no signs of infection. There is no active bleeding. There is not communication with the bone or joint. He has active motor at all toes. He has sensation of pressure intact in all toes. There is less than 2 second capillary refill. There is 2+ dorsalis pedis pulse. The calf is soft and nontender. Remainder of exam is benign including the foot, ankle and leg. Results X-rays of the left foot shows comminuted distal phalanx fracture. There is minimal displacement. - Labs Labs: Abnormal Lab Results - Last 24 Hours (Table) 06/22/17 06/22/17 06/22/17 Range/Units 14:00 14:00 14:00 RBC 3.99 L (4.30-5.90) m/uL Hgb 12.5 L (13.0-17.5) gm/dL Hct 37.4 L (39.0-53.0) % Lymphocytes # 0.8 L (1.0-4.8) k/uL ESR 28 H (0-15) mm/hr Glucose 220 H (74-99) mg/dL POC Glucose (mg/dL) (75-99) mg/dL Hemoglobin A1c (4.0-6.0) % C-Reactive Protein (<10.0) mg/L Total Protein 5.8 L (6.3-8.2) g/dL Albumin 3.4 L (3.5-5.0) g/dL 06/22/17 06/22/17 06/22/17 Range/Units 14:00 14:00 17:43 RBC (4.30-5.90) m/uL Hgb (13.0-17.5) gm/dL Hct (39.0-53.0) % Lymphocytes # (1.0-4.8) k/uL ESR (0-15) mm/hr Glucose (74-99) mg/dL POC Glucose (mg/dL) 138 H (75-99) mg/dL Hemoglobin A1c 7.2 H (4.0-6.0) % C-Reactive Protein 36.7 H (<10.0) mg/L Total Protein (6.3-8.2) g/dL Albumin (3.5-5.0) g/dL 06/22/17 06/23/17 Range/Units 20:33 06:57 RBC (4.30-5.90) m/uL Hgb (13.0-17.5) gm/dL Hct (39.0-53.0) % Lymphocytes # (1.0-4.8) k/uL ESR (0-15) mm/hr Glucose (74-99) mg/dL POC Glucose (mg/dL) 185 H 157 H (75-99) mg/dL Hemoglobin A1c (4.0-6.0) % C-Reactive Protein (<10.0) mg/L Total Protein (6.3-8.2) g/dL Albumin (3.5-5.0) g/dL H & H 06/22/17 Range/Units 14:00 Hgb 12.5 L (13.0-17.5) gm/dL Hct 37.4 L (39.0-53.0) % Result Diagrams: 06/22/17 14:00 06/22/17 14:00 - Diagnostic results Ankle/Foot x-ray: report reviewed, image reviewed Assessment and Plan (1) Toe fracture, left Narrative/Plan: Recommended continued IV antibiotic coverage. I've also recommended twice a day warm soapy soaks. He is to also continue with elevation. Continue pain management, medical management along with strict blood glucose control and DVT prophylaxis. We'll continue to monitor daily. He may use a postop hard sole shoe for partial weightbearing when necessary. Current Visit: Yes Status: Acute Priority: Medium Code(s): S92.912A - UNSP FRACTURE OF LEFT TOE(S), INIT FOR CLOS FX SNOMED Code(s): 13493202 Time with Patient: Less than 30
[2017-06-23 09:09] LABS: ALT 23 U/L (21-72); AST 20 U/L (17-59); Albumin 3.3 g/dL (3.5-5.0); Alkaline Phosphatase 90 U/L (38-126); Anion Gap 10 mmol/L; Blood Urea Nitrogen 14 mg/dL (9-20); Calcium 8.7 mg/dL (8.4-10.2); Carbon Dioxide 27 mmol/L (22-30); Chloride 106 mmol/L (98-107); Glucose 161 mg/dL (74-99); Potassium 4.9 mmol/L (3.5-5.1); Sodium 143 mmol/L (137-145); Total Bilirubin 0.6 mg/dL (0.2-1.3); Total Protein 5.7 g/dL (6.3-8.2)
[2017-06-23 11:22] LABS: Glucose,Whole Blood 206 mg/dL (75-99)
--- NOTE | 2017-06-23 11:55 | P.PN ---
Subjective Progress Note Date: 06/23/17 72 years old male patient of Dr. Gonsales with past medical history of coronary artery disease status post CABG with SVG to OM and SVG to RCA in 1998 and 2009, history of aortic valve replacement, peripheral artery disease status post right leg femoral bypass 1995 followed by stenting by Dr. Baker in 2017, insulin -dependent diabetes, history of TIA post carotid endarterectomy on the left side , history of carotid stenosis complete occlusion on the right, history of diabetic neuropathy, ex-smoker, hyperlipidemia, hypertension comes in today after he accidentally dropped a heavy piece of tire on his left lower extremity. He saw his primary care physician yesterday as he developed a significant blood blister, x-ray of the foot was done and patient had a follow- up appointment today with the primary care physician who sent him here. Patient denies any fever or chills but does endorse sweating. Vitals obtained in the ER suggested temp of 99.8, pulse rate 69, blood pressure 146/71. Labs suggested a hemoglobin of 12.5, glucose 220 lactic acid was 1.5, CRP 36.7. Patient initiated on broad-spectrum antibiotics with vancomycin and Zosyn. Orthopedic and infectious disease consulted. 06/23: Patient is laying down in bed in no apparent distress, denies any chest pain, no shortness breath, has no coughing, no abdominal pain, he was started on IV antibiotic in the form of vancomycin and Zosyn, he was seen in consultation by orthopedic surgery he has commuted fracture intra-articularly there is no intention for any surgical intervention at this time he would have a surgical boot for his foot and will be seen by infectious disease for antibiotic management and physical therapy evaluation. Objective - Vital Signs Vital signs: Vital Signs Temp 98.1 F 06/23/17 05:45 Pulse 66 06/23/17 05:45 Resp 16 06/23/17 05:45 BP 146/69 06/23/17 05:45 Pulse Ox 93 L 06/23/17 05:45 Intake & Output 06/22/17 06/23/17 06/23/17 18:59 06:59 18:59 Weight 109.769 kg Other: # Voids 1 - Exam Constitutional General appearance: cooperative, no acute distress, obese - EENT Eyes: anicteric sclerae, PERRLA, normal appearance ENT: hearing grossly normal - Neck Neck: no lymphadenopathy, normal ROM, no other, no rigidity, no stridor, no thyromegaly - Respiratory Respiratory: bilateral: CTA, negative: diminished, dullness, rales, rhonchi - Cardiovascular Rhythm: regular Heart sounds: normal: S1, S2 Abnormal Heart Sounds: 3/5 systolic murmur, no diastolic murmur, no rub, no S3 Gallop, no S4 Gallop, no click, no other - Gastrointestinal General gastrointestinal: normal bowel sounds, soft, nontender - Integumentary Integumentary: Significant swelling of the first toe on the left with peeling of the skin on the dorsum surface of the toe. Nail is intact. Peripheral pulses are palpable redness is limited to the dorsum and plantar aspect of the toe and goes up till mid foot slight warm to touch. Neurovascular function intact - Neurologic Neurologic: CNII-XII intact - Musculoskeletal Musculoskeletal: gait not assessed, strength equal bilaterally - Psychiatric Psychiatric: A&O x's 3, appropriate affect - Labs CBC & Chem 7: 06/23/17 08:07 06/23/17 08:07 Labs: Abnormal Lab Results - Last 24 Hours (Table) 06/22/17 06/22/17 06/22/17 Range/Units 14:00 14:00 14:00 RBC 3.99 L (4.30-5.90) m/uL Hgb 12.5 L (13.0-17.5) gm/dL Hct 37.4 L (39.0-53.0) % Lymphocytes # 0.8 L (1.0-4.8) k/uL ESR 28 H (0-15) mm/hr Glucose 220 H (74-99) mg/dL POC Glucose (mg/dL) (75-99) mg/dL Hemoglobin A1c (4.0-6.0) % C-Reactive Protein (<10.0) mg/L Total Protein 5.8 L (6.3-8.2) g/dL Albumin 3.4 L (3.5-5.0) g/dL 06/22/17 06/22/17 06/22/17 Range/Units 14:00 14:00 17:43 RBC (4.30-5.90) m/uL Hgb (13.0-17.5) gm/dL Hct (39.0-53.0) % Lymphocytes # (1.0-4.8) k/uL ESR (0-15) mm/hr Glucose (74-99) mg/dL POC Glucose (mg/dL) 138 H (75-99) mg/dL Hemoglobin A1c 7.2 H (4.0-6.0) % C-Reactive Protein 36.7 H (<10.0) mg/L Total Protein (6.3-8.2) g/dL Albumin (3.5-5.0) g/dL 06/22/17 06/23/17 Range/Units 20:33 06:57 RBC (4.30-5.90) m/uL Hgb (13.0-17.5) gm/dL Hct (39.0-53.0) % Lymphocytes # (1.0-4.8) k/uL ESR (0-15) mm/hr Glucose (74-99) mg/dL POC Glucose (mg/dL) 185 H 157 H (75-99) mg/dL Hemoglobin A1c (4.0-6.0) % C-Reactive Protein (<10.0) mg/L Total Protein (6.3-8.2) g/dL Albumin (3.5-5.0) g/dL Assessment and Plan Assessment: Assessment and Plan Plan: #1 left comminuted intra-articular fracture distal phalanx first digit post trauma with superficial cellulitis. Continue dry dressing. Nonweightbearing on left lower extremity until seen by orthopedics. Neurovascular function intact. Continue vancomycin and Zosyn. Infectious disease consulted #2 coronary artery disease status post CABG 1998 and 2009. Currently chest pain -free. Continue aspirin, Lipitor 80 mg daily at bedtime, Plavix 75 mg daily, losartan, metoprolol 50 mg po BID #3 insulin-dependent diabetes with diabetic neuropathy continue insulin sliding scale. Lantus 50 units at bedtime reduced from 65 units taken at home. #4 hypertension continue losartan and metoprolol at the current dose #5 aortic valve replacement, stable #6 carotid artery stenosis status post left carotid endarterectomy, total occlusion on the right. Continue aspirin and Plavix #7 peripheral artery disease status post right left femoral popliteal bypass in 1995 with left PTB in 1995 stenting of the occluded femoral to popliteal bypass in July 2016. Continue Plavix #8 hyperlipidemia continue Lipitor 80 mg by mouth daily #9 history of tobacco abuse quit in 1998. No history of wheezing or shortness of breath on examination. Patient does complain of cough and will initiate Tessalon Perles #10 Muscle cramps continue methocarbamol 3 times a day #11 hip osteoarthritis continue [place] for pain control. # 12. DVT prophylaxis. Lovenox 40 mg subcutaneously every 24 hours. # 13.GI prophylaxis. Start the patient on PPI. #13. Patient is full code.
[2017-06-23] MEDS: VANCOMYCIN 1,750 MG in SODIUM CHLORIDE 0.9% 250 ML IVPB SCH (12:30)
[2017-06-23] MEDS: MAGNESIUM OXIDE 400 MG TAB PO SCH (12:30)
[2017-06-23] MEDS: MULTIVITAMINS, THERA 1 EACH TAB PO SCH (12:30)
[2017-06-23] MEDS: ceFAZolin IN SWFI 2 GM/20 ML SYRINGE IVP SCH (16:50)
[2017-06-23 16:56] LABS: Glucose,Whole Blood 176 mg/dL (75-99)
[2017-06-23] MEDS: ATORVASTATIN 80 MG TAB PO SCH (20:13)
[2017-06-23] MEDS: MONTELUKAST 10 MG TAB PO SCH (20:14)
[2017-06-23 21:07] LABS: Glucose,Whole Blood 162 mg/dL (75-99)
[2017-06-23] MEDS: INSULIN DETEMIR 100 UNIT/ML 10 ML VIAL SQ SCH (21:59)
[2017-06-24] MEDS: ceFAZolin IN SWFI 2 GM/20 ML SYRINGE IVP SCH ×3 (00:04→16:52)
[2017-06-24] MEDS: SODIUM CHLORIDE 0.45% 1,000 ML IV SCH ×2 (06:35→16:49)
[2017-06-24 07:18] LABS: Glucose,Whole Blood 138 mg/dL (75-99)
--- NOTE | 2017-06-24 07:28 | CONS ---
CONSULTATION DATE OF SERVICE: 06/23/2017. REASON FOR CONSULTATION: Left big toe wound and left foot cellulitis. HISTORY OF PRESENT ILLNESS: The patient is a 72-year-old male with past medical history of diabetes. He did drop a rotor on his left big toe on Sunday. The patient did mention that he did have bruising of his left big toe and subsequently developing a blood blister. He went to see his primary care physician who advised the patient to soak the foot in warm water. The patient did mention that he was doing that and subsequently developing a blood blister for which the patient presented to his PCP the very next day on . The patient was advised to go to the [facility] where the patient has been evaluated by the ER physician. The patient did have x-rays of the left foot which did show a communicate intractable fracture distal phalanx post digit with subsequent developing redness that was present to the dorsum of his left foot. Diagnosed with cellulitis in a patient who did have a low-grade fever of 99.8, white count was normal though. The patient was started on vancomycin and admitted to the hospital. Both orthopedics and Infectious Disease was consulted for further recommendation regarding management. The patient did have underlying diabetic neuropathy and hence he did not have any pain currently with mostly present to the left big toe has open wound both on dorsum as well as the plantar aspect with no drainage. REVIEW OF SYSTEMS: CONSTITUTIONAL: Positive for weakness but no high-grade fever. Eyes: No complaint. ENT no complaint. Respiratory no complaint. Cardiovascular no complaint. Genitourinary no complaint. Gastrointestinal: No complaint. Musculoskeletal as per HPI. Integumentary as per HPI. Psychological no complaint. Endocrine no complaint. Neurological no complaint. PAST MEDICAL HISTORY: Hypertension, hyperlipidemia, diabetes mellitus, osteoarthritis, CVA, TIA, coronary artery disease. PAST SURGICAL HISTORY: Chronic bypass grafting, cardiac valve replacement, adenoidectomy, heart catheterization, tonsillectomy, left hip replacement. Bilateral cataract surgery. SOCIAL HISTORY: Remote history of smoking. No drinking or drug use. FAMILY HISTORY: Mother with history of esophageal cancer, pulmonary embolism. Father history of coronary artery disease and diabetes mellitus. ALLERGIES: No known drug allergies. MEDICATION: Medications include the patient is currently on Tylenol, Lima, aspirin, Lipitor, Plavix, Lovenox, Pepcid, NovoLog, Levemir, Imdur, Cozaar, Mag oxide, naproxen, Lopressor, Singulair, Narcan, Zofran, Protonix, Ultram, and vancomycin. EXAMINATION: Blood pressure is 151/77 with a pulse of 68, temperature 98.7. He is 94% on room air. General description is an elderly male up in the bed in no distress. No tachypnea or accessory muscles of respiration use. HEENT: Shows no pallor or scleral icterus. Oral mucosa membranes is moist. No pharyngeal erythema or thrush. Neck trachea central and no thyromegaly. Lungs unlabored breathing. Clear to auscultation anteriorly. No wheeze or crackles. Heart S1, S2 regular rate and rhythm. ABDOMEN: Soft. No tenderness and no guarding or rigidity. EXTREMITIES: No edema of the feet. Examination of the left big toe did have a bruise with local pressure ulceration both on the dorsum as well as the plantar aspect with no slough tissue. No foul smelling drainage. Apparently the patient did have some erythema on dorsum of the left foot that seems to have receded from the line that was placed in the ER. Neurological: Patient is awake, alert, oriented x3. Mood and affect normal. LABS: Hemoglobin 13.1, white count 5.7, BUN of 14, creatinine 0.74. Electrolytes have been normal. Liver enzymes have been normal. Blood culture obtained, currently pending. X- ray report as mentioned above. DIAGNOSTIC IMPRESSION AND PLAN: Patient with left big toe diabetic foot infection started as a trauma now with ulceration to the dorsum and the plantar aspect of the left foot from ruptured of the blood blister with secondary cellulitis likely from a gram-positive skin addis. Clinically doubt Methicillin-resistant Staphylococcus aureus or gram-negative infection. PLAN: 1. Discontinue the vancomycin to decrease risk of nephrotoxicity. 2. Will start the patient on cefazolin 2 g q.8 hours. 3. Local wound care with Aquacel Silver dressing to be changed every hours. 4. We will follow up on his clinical condition to further adjust medication if needed. Thank you for this consultation. We will follow this patient along with you. MMODL / IJN: [id number] /
[2017-06-24] MEDS: INSULIN ASPART 100 UNIT/ML 1 ML 10 ML VIAL SQ SCH ×7 (08:08→21:38)
[2017-06-24] MEDS: ASPIRIN 325 MG TAB PO SCH (08:09)
[2017-06-24] MEDS: ENOXAPARIN 40 MG/0.4 ML SYRINGE SQ SCH (08:10)
[2017-06-24] MEDS: FAMOTIDINE 20 MG TAB PO SCH ×2 (08:10→21:29)
[2017-06-24] MEDS: CLOPIDOGREL 75 MG TAB PO SCH (08:10)
[2017-06-24] MEDS: METHOCARBAMOL 750 MG TAB PO SCH ×3 (08:10→21:29)
[2017-06-24] MEDS: LOSARTAN 50 MG TAB PO SCH (08:10)
[2017-06-24] MEDS: ISOSORBIDE MONONITRATE ER 60 MG TAB.ER.24H PO SCH (08:10)
[2017-06-24] MEDS: METOPROLOL TARTRATE 50 MG TAB PO SCH ×2 (08:11→21:31)
[2017-06-24 08:42] LABS: Basophils % (A) 1 %; Eosinophils # (A) 0.3 k/uL (0-0.7); Eosinophils % (A) 8 %; HCT 39.5 % (39.0-53.0); Lymphocytes # (A) 0.7 k/uL (1.0-4.8); Lymphocytes % (A) 16 %; MCH 30.9 pg (25.0-35.0); MCHC 32.9 g/dL (31.0-37.0); MCV 93.9 fL (80.0-100.0); Mean Platelet Volume 8.6; Monocytes # (A) 0.4 k/uL (0-1.0); Monocytes % (A) 8 %; Neutrophils % (A) 66 %; Platelet Count 156 k/uL (150-450); RBC 4.21 m/uL (4.30-5.90); RDW 13.3 % (11.5-15.5); WBC 4.5 k/uL (3.8-10.6)
[2017-06-24 08:59] LABS: ALT 24 U/L (21-72); AST 20 U/L (17-59); Albumin 3.5 g/dL (3.5-5.0); Alkaline Phosphatase 98 U/L (38-126); Anion Gap 10 mmol/L; Blood Urea Nitrogen 12 mg/dL (9-20); Calcium 8.9 mg/dL (8.4-10.2); Carbon Dioxide 27 mmol/L (22-30); Chloride 104 mmol/L (98-107); Glucose 160 mg/dL (74-99); Potassium 4.5 mmol/L (3.5-5.1); Sodium 141 mmol/L (137-145); Total Bilirubin 0.5 mg/dL (0.2-1.3); Total Protein 6.1 g/dL (6.3-8.2)
[2017-06-24] MEDS: PANTOPRAZOLE 40 MG/10 ML VIAL IV SCH (09:00)
--- NOTE | 2017-06-24 09:48 | P.PN ---
Subjective Progress Note Date: 06/24/17 72 years old male patient of Dr. Gonsales with past medical history of coronary artery disease status post CABG with SVG to OM and SVG to RCA in 1998 and 2009, history of aortic valve replacement, peripheral artery disease status post right leg femoral bypass 1995 followed by stenting by Dr. Baker in 2016, insulin -dependent diabetes, history of TIA post carotid endarterectomy on the left side , history of carotid stenosis complete occlusion on the right, history of diabetic neuropathy, ex-smoker, hyperlipidemia, hypertension comes in today after he accidentally dropped a heavy piece of tire on his left lower extremity. He saw his primary care physician yesterday as he developed a significant blood blister, x-ray of the foot was done and patient had a follow- up appointment today with the primary care physician who sent him here. Patient denies any fever or chills but does endorse sweating. Vitals obtained in the ER suggested temp of 99.8, pulse rate 69, blood pressure 146/71. Labs suggested a hemoglobin of 12.5, glucose 220 lactic acid was 1.5, CRP 36.7. Patient initiated on broad-spectrum antibiotics with vancomycin and Zosyn. Orthopedic and infectious disease consulted. 06/23: Patient is laying down in bed in no apparent distress, denies any chest pain, no shortness breath, has no coughing, no abdominal pain, he was started on IV antibiotic in the form of vancomycin and Zosyn, he was seen in consultation by orthopedic surgery he has commuted fracture intra-articularly there is no intention for any surgical intervention at this time he would have a surgical boot for his foot and will be seen by infectious disease for antibiotic management and physical therapy evaluation. 06/24: Patient is feeling a lot better, his blood glucose level is better today since we adjusted his insulin yesterday he denies any chest pain, shortness breath, he was seen in consultation by infectious disease yesterday along with orthopedic surgery we'll continue with current care continue IV anabiotic in the form of Kefzol vancomycin and Zosyn were discontinued. Objective - Vital Signs Vital signs: Vital Signs Temp 98.4 F 06/24/17 06:04 Pulse 57 L 06/24/17 06:04 Resp 16 06/24/17 06:04 BP 152/73 06/24/17 06:04 Pulse Ox 95 06/24/17 06:04 Intake & Output 06/23/17 06/24/17 06/24/17 18:59 06:59 18:59 Intake Total 1450 Balance 1450 Intake: Oral 1450 Other: Voiding Method Toilet # Voids 2 1 - Exam Constitutional General appearance: cooperative, no acute distress, obese - EENT Eyes: anicteric sclerae, PERRLA, normal appearance ENT: hearing grossly normal - Neck Neck: no lymphadenopathy, normal ROM, no other, no rigidity, no stridor, no thyromegaly - Respiratory Respiratory: bilateral: CTA, negative: diminished, dullness, rales, rhonchi - Cardiovascular Rhythm: regular Heart sounds: normal: S1, S2 Abnormal Heart Sounds: 3/5 systolic murmur, no diastolic murmur, no rub, no S3 Gallop, no S4 Gallop, no click, no other - Gastrointestinal General gastrointestinal: normal bowel sounds, soft, nontender - Integumentary Integumentary: Significant swelling of the first toe on the left with peeling of the skin on the dorsum surface of the toe. Nail is intact. Peripheral pulses are palpable redness is limited to the dorsum and plantar aspect of the toe and goes up till mid foot slight warm to touch. Neurovascular function intact - Neurologic Neurologic: CNII-XII intact - Musculoskeletal Musculoskeletal: gait not assessed, strength equal bilaterally - Psychiatric Psychiatric: A&O x's 3, appropriate affect - Labs CBC & Chem 7: 06/24/17 08:22 06/24/17 08:22 Labs: Abnormal Lab Results - Last 24 Hours (Table) 06/23/17 06/23/17 06/23/17 Range/Units 08:07 08:07 11:20 RBC 4.17 L (4.30-5.90) m/uL Lymphocytes # 0.5 L (1.0-4.8) k/uL Glucose 161 H (74-99) mg/dL POC Glucose (mg/dL) 206 H (75-99) mg/dL Total Protein 5.7 L (6.3-8.2) g/dL Albumin 3.3 L (3.5-5.0) g/dL 06/23/17 06/23/17 Range/Units 16:42 20:59 RBC (4.30-5.90) m/uL Lymphocytes # (1.0-4.8) k/uL Glucose (74-99) mg/dL POC Glucose (mg/dL) 176 H 162 H (75-99) mg/dL Total Protein (6.3-8.2) g/dL Albumin (3.5-5.0) g/dL Microbiology - Last 24 Hours (Table) 06/22/17 17:30 Blood Culture - Preliminary Blood No Growth after 24 hours 06/22/17 14:00 Blood Culture - Preliminary Blood No Growth after 24 hours Assessment and Plan Assessment: Assessment and Plan Plan: #1 left comminuted intra-articular fracture distal phalanx first digit post trauma with superficial cellulitis. Continue dry dressing. Nonweightbearing on left lower extremity until seen by orthopedics. Neurovascular function intact. Continue , vancomycin and Zosyn were discontinued. #2 coronary artery disease status post CABG 1998 and 2009. Currently chest pain -free. Continue aspirin, Lipitor 80 mg daily at bedtime, Plavix 75 mg daily, losartan, metoprolol 50 mg po BID #3 insulin-dependent diabetes with diabetic neuropathy continue insulin sliding scale. Lantus 50 units at bedtime reduced from 65 units taken at home. #4 hypertension continue losartan and metoprolol at the current dose #5 aortic valve replacement, stable #6 carotid artery stenosis status post left carotid endarterectomy, total occlusion on the right. Continue aspirin and Plavix #7 peripheral artery disease status post right left femoral popliteal bypass in 1995 with left PTB in 1995 stenting of the occluded femoral to popliteal bypass in July 2016. Continue Plavix #8 hyperlipidemia continue Lipitor 80 mg by mouth daily #9 history of tobacco abuse quit in 1998. No history of wheezing or shortness of breath on examination. Patient does complain of cough and will initiate Tessalon Perles #10 Muscle cramps continue methocarbamol 3 times a day #11 hip osteoarthritis continue Girard for pain control. # 12. DVT prophylaxis. Lovenox 40 mg subcutaneously every 24 hours. # 13.GI prophylaxis. Start the patient on PPI. #14. Home tomorrow morning.
[2017-06-24] MEDS: HYDROcodone/APAP 10-325MG 1 EACH TAB PO PRN (10:13)
[2017-06-24] MEDS ORDERED: VANCOMYCIN TROUGH DUE 1 EACH MISC MISCELLANE ONE (11:00)
[2017-06-24 11:46] LABS: Glucose,Whole Blood 214 mg/dL (75-99)
[2017-06-24] MEDS: MAGNESIUM OXIDE 400 MG TAB PO SCH (12:39)
[2017-06-24] MEDS: MULTIVITAMINS, THERA 1 EACH TAB PO SCH (12:39)
--- NOTE | 2017-06-24 14:08 | P.PN ---
Subjective Progress Note Date: 06/24/17 Principal diagnosis: distal phalanx fracture great toe Patient seen at bedside this morning. He has a distal phalanx fracture of the great toe. There are two areas of skin breakdown but did not appear to communicate with the fracture or joint which also did not appear to be infected. He states his pain and symptoms are improved today. He has no fever, chills, or other complaints currently. Objective - Vital Signs Vital signs: Vital Signs Temp 98.4 F 06/24/17 06:04 Pulse 57 L 06/24/17 06:04 Resp 16 06/24/17 06:04 BP 152/73 06/24/17 06:04 Pulse Ox 95 06/24/17 06:04 Intake & Output 06/23/17 06/24/17 06/24/17 18:59 06:59 18:59 Intake Total 1450 Balance 1450 Intake: Oral 1450 Other: Voiding Method Toilet # Voids 2 1 - Exam Inspection of the left foot and great toe shows continued resolving hematoma/ ecchymoses. There are stable blister-type open wounds at the dorsum and volar aspects of the great toe. There is no bony deformity. There is no signs of infection. There is no active bleeding. There is not communication with the bone or joint. He has active motor at all toes. He has sensation of pressure intact in all toes. There is less than 2 second capillary refill. There is 2+ dorsalis pedis pulse. The calf is soft and nontender. Remainder of exam is benign including the foot, ankle and leg. - Constitutional General appearance: Present: no acute distress - Psychiatric Psychiatric: Present: A&O x's 3, appropriate affect, intact judgment & insight - Labs CBC & Chem 7: 06/24/17 08:22 06/24/17 08:22 Labs: Abnormal Lab Results - Last 24 Hours (Table) 06/23/17 06/23/17 06/23/17 Range/Units 11:20 16:42 20:59 RBC (4.30-5.90) m/uL Lymphocytes # (1.0-4.8) k/uL Creatinine (0.66-1.25) mg/dL Glucose (74-99) mg/dL POC Glucose (mg/dL) 206 H 176 H 162 H (75-99) mg/dL Total Protein (6.3-8.2) g/dL 06/24/17 06/24/17 06/24/17 Range/Units 07:14 08:22 08:22 RBC 4.21 L (4.30-5.90) m/uL Lymphocytes # 0.7 L (1.0-4.8) k/uL Creatinine 0.65 L (0.66-1.25) mg/dL Glucose 160 H (74-99) mg/dL POC Glucose (mg/dL) 138 H (75-99) mg/dL Total Protein 6.1 L (6.3-8.2) g/dL Microbiology - Last 24 Hours (Table) 06/22/17 17:30 Blood Culture - Preliminary Blood No Growth after 24 hours 06/22/17 14:00 Blood Culture - Preliminary Blood No Growth after 24 hours Assessment and Plan (1) Toe fracture, left Narrative/Plan: Recommended continued IV antibiotic coverage and wound care per infectious disease. He is to continue with elevation, pain management, medical management along with strict blood glucose control and DVT prophylaxis. We'll continue to monitor daily. He may use a postop hard sole shoe for partial weightbearing when necessary. Current Visit: Yes Status: Acute Priority: Medium Code(s): S92.912A - UNSP FRACTURE OF LEFT TOE(S), INIT FOR CLOS FX SNOMED Code(s): 65344607 Time with Patient: Less than 30
[2017-06-24 16:49] LABS: Glucose,Whole Blood 167 mg/dL (75-99)
[2017-06-24 20:54] LABS: Glucose,Whole Blood 188 mg/dL (75-99)
[2017-06-24] MEDS: ATORVASTATIN 80 MG TAB PO SCH (21:29)
[2017-06-24] MEDS: MONTELUKAST 10 MG TAB PO SCH (21:29)
[2017-06-24] MEDS: INSULIN DETEMIR 100 UNIT/ML 10 ML VIAL SQ SCH (21:32)
--- NOTE | 2017-06-24 23:21 | PN ---
PROGRESS NOTE DATE OF SERVICE: 06/24/2017. REASON FOR FOLLOWUP: Left big toe diabetic foot infection. INTERVAL HISTORY: The patient is afebrile, has been breathing comfortably. Overall swelling and redness to the left foot slightly decreased. The patient denies having any pain. Denies any chest pain, shortness of breath or cough. No abdominal pain and no diarrhea. PHYSICAL EXAMINATION: Blood pressure 119/63, pulse of 62, temperature of 98. He is 94% on room air. General description is an elderly male up in the chair in no distress. Respiratory system unlabored breathing. Clear to auscultation anteriorly. heart S1, S2. Regular rate and rhythm. Abdomen soft. No tenderness. Left big toe some swelling and a bruise. Minimal drainage, redness improved. LABS: Hemoglobin is 13, white count 4.5 BUN of 12, creatinine 0.65. DIAGNOSTIC IMPRESSION AND PLAN: Patient with left diabetic foot infection. Traumatic with cellulitis and blister formation, currently on cefazolin that will be continued. Local wound care with Aquacel Silver dressing. Finish therapy with oral Keflex. Continue supportive care. MMODL / IJN: [id number] /
[2017-06-25] MEDS: ceFAZolin IN SWFI 2 GM/20 ML SYRINGE IVP SCH ×2 (00:07→08:02)
[2017-06-25 07:12] LABS: Glucose,Whole Blood 169 mg/dL (75-99)
[2017-06-25] MEDS: INSULIN ASPART 100 UNIT/ML 1 ML 10 ML VIAL SQ SCH ×4 (08:01→12:39)
[2017-06-25] MEDS: ISOSORBIDE MONONITRATE ER 60 MG TAB.ER.24H PO SCH (08:02)
[2017-06-25] MEDS: ENOXAPARIN 40 MG/0.4 ML SYRINGE SQ SCH (08:02)
[2017-06-25] MEDS: METHOCARBAMOL 750 MG TAB PO SCH (08:02)
[2017-06-25] MEDS: FAMOTIDINE 20 MG TAB PO SCH (08:03)
[2017-06-25] MEDS: CLOPIDOGREL 75 MG TAB PO SCH (08:03)
[2017-06-25] MEDS: PANTOPRAZOLE 40 MG/10 ML VIAL IV SCH (08:03)
[2017-06-25] MEDS: LOSARTAN 50 MG TAB PO SCH (08:03)
[2017-06-25] MEDS: ASPIRIN 325 MG TAB PO SCH (08:03)
[2017-06-25] MEDS: METOPROLOL TARTRATE 50 MG TAB PO SCH (08:04)
[2017-06-25 08:16] VITALS: BP 137/62; PULSE 68; RESP 16; TEMP 98
[2017-06-25 10:13] LABS: Basophils % (A) 1 %; Eosinophils # (A) 0.3 k/uL (0-0.7); Eosinophils % (A) 5 %; Lymphocytes # (A) 0.8 k/uL (1.0-4.8); Lymphocytes % (A) 15 %; MCH 30.9 pg (25.0-35.0); MCHC 32.5 g/dL (31.0-37.0); Mean Platelet Volume 8.8; Monocytes # (A) 0.4 k/uL (0-1.0); Monocytes % (A) 7 %; Neutrophils # (A) 3.6 k/uL (1.3-7.7); Neutrophils % (A) 70 %; Platelet Count 197 k/uL (150-450); RBC 4.21 m/uL (4.30-5.90); RDW 13.3 % (11.5-15.5); WBC 5.2 k/uL (3.8-10.6)
[2017-06-25 10:30] LABS: ALT 22 U/L (21-72); AST 22 U/L (17-59); Albumin 3.5 g/dL (3.5-5.0); Alkaline Phosphatase 104 U/L (38-126); Anion Gap 9 mmol/L; Blood Urea Nitrogen 15 mg/dL (9-20); Calcium 9.3 mg/dL (8.4-10.2); Carbon Dioxide 29 mmol/L (22-30); Chloride 101 mmol/L (98-107); Glucose 287 mg/dL (74-99); Potassium 5.1 mmol/L (3.5-5.1); Sodium 139 mmol/L (137-145); Total Bilirubin 0.4 mg/dL (0.2-1.3)
[2017-06-25 11:51] LABS: Glucose,Whole Blood 278 mg/dL (75-99)
[2017-06-25] MEDS: MAGNESIUM OXIDE 400 MG TAB PO SCH (12:39)
[2017-06-25] MEDS: MULTIVITAMINS, THERA 1 EACH TAB PO SCH (12:39)
--- NOTE | 2017-06-25 15:02 | PN ---
PROGRESS NOTE DATE OF SERVICE: 06/25/2017. REASON FOR FOLLOW UP: Left big toe diabetic foot infection with cellulitis. INTERVAL HISTORY: The patient is afebrile. He has been breathing comfortably. Denies having any chest pain or shortness of breath, no cough. No abdominal pain or any pain to the left big toe area. Overall swelling and redness has slightly decreased. EXAMINATION: Blood pressure is 137/62 with a pulse of 68, temperature of 98. He is 94% on room air. General description is an elderly male lying in bed in no distress. Respiratory system: Unlabored breathing. Clear to auscultation anteriorly. Heart S1, S2. Regular rate and rhythm. ABDOMEN: Soft, no tenderness. Left big toe swelling, redness improved. No drainage. LABS: Hemoglobin is 13, white count 5.2 with a BUN of 15, creatinine 0.78. DIAGNOSTIC IMPRESSION AND PLAN: Patient with left diabetic foot infection, traumatic with cellulitis right big toe improved. The patient overall improvement on the cefazolin with a plan to finish therapy with oral Keflex for about a week. Local wound care with Aquacel Silver dressing and follow up in the office in 1 week. Continue supportive care. MMODL / IJN: [id number] /
[2017-06-26] MEDS ORDERED: PANTOPRAZOLE 40 MG TABLET PO SCH (07:30)
--- NOTE | 2017-06-27 14:38 | P.DS ---
Providers Date of admission: 06/22/17 15:03 Expected date of discharge: 06/25/17 Attending physician: Tata Montes De Oca MD Consults: 06/22/17 15:26 Consult Physician Stat Consulting Provider: Joaquin Ascencio Consult Reason/Comments: Open Left toe fracture, diabetic pt Do you want consulting provider notified?: Already Contacted 06/22/17 16:08 Consult Physician Routine Consulting Provider: Janel Mario Consult Reason/Comments: comminuted toe fracture Do you want consulting provider notified?: Yes Primary care physician: Slade Gonsales [facility] Course: 72 years old male patient of Dr. Gonsales with past medical history of coronary artery disease status post CABG with SVG to OM and SVG to RCA in 1998 and 2009, history of aortic valve replacement, peripheral artery disease status post right leg femoral bypass 1995 followed by stenting by Dr. Baker in 2016, insulin -dependent diabetes, history of TIA post carotid endarterectomy on the left side , history of carotid stenosis complete occlusion on the right, history of diabetic neuropathy, ex-smoker, hyperlipidemia, hypertension comes in today after he accidentally dropped a heavy piece of tire on his left lower extremity. He saw his primary care physician yesterday as he developed a significant blood blister, x-ray of the foot was done and patient had a follow- up appointment today with the primary care physician who sent him here. Patient denies any fever or chills but does endorse sweating. Vitals obtained in the ER suggested temp of 99.8, pulse rate 69, blood pressure 146/71. Labs suggested a hemoglobin of 12.5, glucose 220 lactic acid was 1.5, CRP 36.7. Patient initiated on broad-spectrum antibiotics with vancomycin and Zosyn. Orthopedic and infectious disease consulted. 06/23: Patient is laying down in bed in no apparent distress, denies any chest pain, no shortness breath, has no coughing, no abdominal pain, he was started on IV antibiotic in the form of vancomycin and Zosyn, he was seen in consultation by orthopedic surgery he has commuted fracture intra-articularly there is no intention for any surgical intervention at this time he would have a surgical boot for his foot and will be seen by infectious disease for antibiotic management and physical therapy evaluation. 06/24: Patient is feeling a lot better, his blood glucose level is better today since we adjusted his insulin yesterday he denies any chest pain, shortness breath, he was seen in consultation by infectious disease yesterday along with orthopedic surgery we'll continue with current care continue IV anabiotic in the form of Kefzol vancomycin and Zosyn were discontinued. 06/24: Blood sugar is currently running 167-278. Patient's swelling and redness have improved. He denies any pain to his left foot. Dr. Ascencio is recommended [facility] for discharge and local wound care with Respi . Patient to follow- up with Dr. Spencer in one week. Patient will be discharged home today in stable condition. Discharge diagnoses: 1. Left comminuted intra-articular fracture distal phalanx first digit post trauma with superficial cellulitis. 2. Coronary artery disease status post CABG 1998 and 2009. 3. Diabetes mellitus insulin-dependent with diabetic neuropathy 4. Hypertension 5. Aortic valve replacement, stable 6. Carotid artery stenosis status post left carotid endarterectomy, total occlusion on the right. 7. Peripheral artery disease status post right left femoral popliteal bypass in 1995 with left PTB in 1995 stenting of the occluded femoral to popliteal bypass in July 2016. 8. Hyperlipidemia 9. History of tobacco abuse quit in 1998. 10. Muscle cramps 11. Hip osteoarthritis Discharge plan: Impression and plan of care have been directed as dictated by the signing physician. Mar Hooker nurse practitioner acting as scribe for signing physician. Patient Condition at Discharge: Good Plan - Discharge Summary Discharge Rx Participant: Yes New Discharge Prescriptions: New Cephalexin [Keflex] 500 mg PO Q8HR #30 cap Insulin Aspart [NovoLOG (formulary)] 12 unit SQ AC-TID vial Continue Methocarbamol [Robaxin] 750 mg PO TID Insulin Aspart [NovoLOG (formulary)] See Protocol SQ ACHS HYDROcodone/APAP 10-325MG [Fordyce 10-325] 1 tab PO QID PRN PRN Reason: Pain Metoprolol Tartrate [Lopressor] 50 mg PO BID Montelukast [Singulair] 10 mg PO HS Magnesium Oxide [Mag-Ox] 400 mg PO DAILY Atorvastatin [Lipitor] 80 mg PO HS Clopidogrel [Plavix] 75 mg PO DAILY #90 tab Aspirin EC [Ecotrin] 325 mg PO DAILY Cephalexin [Keflex] 500 mg PO Q6HR Isosorbide Mononitrate ER [Imdur] 60 mg PO DAILY Losartan Potassium 100 mg PO DAILY Multivit-Min/FA/Lycopen/Lutein [Centrum Silver Men Tablet] 1 tab PO DAILY Ranitidine HCl [Zantac] 150 mg PO BID Changed Insulin Glargine [Lantus] 55 unit SQ HS #0 Discharge Medication List HYDROcodone/APAP 10-325MG [Fordyce 10-325] 1 tab PO QID PRN 04/23/14 [History] Insulin Aspart [NovoLOG (formulary)] See Protocol SQ ACHS 04/23/14 [History] Methocarbamol [Robaxin] 750 mg PO TID 04/23/14 [History] Metoprolol Tartrate [Lopressor] 50 mg PO BID 04/23/15 [History] Montelukast [Singulair] 10 mg PO HS 04/23/15 [History] Atorvastatin [Lipitor] 80 mg PO HS 06/30/16 [History] Magnesium Oxide [Mag-Ox] 400 mg PO DAILY 06/30/16 [History] Clopidogrel [Plavix] 75 mg PO DAILY #90 tab 08/03/16 [Rx] Aspirin EC [Ecotrin] 325 mg PO DAILY 06/22/17 [History] Cephalexin [Keflex] 500 mg PO Q6HR 06/22/17 [History] Isosorbide Mononitrate ER [Imdur] 60 mg PO DAILY 06/22/17 [History] Losartan Potassium 100 mg PO DAILY 06/22/17 [History] Multivit-Min/FA/Lycopen/Lutein [Centrum Silver Men Tablet] 1 tab PO DAILY [History] Ranitidine HCl [Zantac] 150 mg PO BID 06/22/17 [History] Cephalexin [Keflex] 500 mg PO Q8HR #30 cap 06/25/17 [Rx] Insulin Aspart [NovoLOG (formulary)] 12 unit SQ AC-TID vial 06/25/17 [Rx] Insulin Glargine [Lantus] 55 unit SQ HS #0 06/25/17 [Rx] Follow up Appointment(s)/Referral(s): Janel Mario DO [Doctor of Osteopathic Medicine] - 07/02/17 8:00 am () [facility], [NON-STAFF] - Slade Gonsales MD [Primary Care Provider] - 06/27/17 3:45 pm Joaquin Ascencio MD [STAFF PHYSICIAN] - 07/05/17 9:15 am Patient Instructions/Handouts: Cellulitis (DC), Diabetic Peripheral Neuropathy (DC) Activity/Diet/Wound Care/Special Instructions: May weight-bear as tolerated and ambulate on his left heel or with postop hard sole shoe intact. Do not wear regular shoes. Elevate left lower extremity as much as possible over level of his heart. He is given instructions for this. Discharge Disposition: HOME WITH HOME HEALTH SERVICES
== END 2017-06-25 14:17 | disposition home health service (06) | DRG 639 ==
LOC: EC 12:44 → 4MS4W 15:03
PROVIDERS: ADMIT Internal Medicine; ATTEND Internal Medicine
DX: E11.628 Type 2 diabetes mellitus with other skin complications (principal); L03.032 Cellulitis of left toe; Z79.4 Long term (current) use of insulin; E11.42 Type 2 diabetes mellitus with diabetic polyneuropathy; E11.51 Type 2 diabetes mellitus with diabetic peripheral angiopathy without gangrene; E11.621 Type 2 diabetes mellitus with foot ulcer; E78.5 Hyperlipidemia, unspecified; I10 Essential (primary) hypertension; I25.10 Atherosclerotic heart disease of native coronary artery without angina pectoris; I65.21 Occlusion and stenosis of right carotid artery; Z87.891 Personal history of nicotine dependence; J45.909 Unspecified asthma, uncomplicated; L97.529 Non-pressure chronic ulcer of other part of left foot with unspecified severity; M16.10 Unilateral primary osteoarthritis, unspecified hip; S92.422A Displaced fracture of distal phalanx of left great toe, initial encounter for closed fracture; W20.8XXA Other cause of strike by thrown, projected or falling object, initial encounter; Z79.02 Long term (current) use of antithrombotics/antiplatelets; Z79.82 Long term (current) use of aspirin; Z79.899 Other long term (current) drug therapy; Z82.49 Family history of ischemic heart disease and other diseases of the circulatory system; Z83.3 Family history of diabetes mellitus; Z86.010 Personal history of colon polyps; Z86.73 Personal history of transient ischemic attack (TIA), and cerebral infarction without residual deficits; Z95.1 Presence of aortocoronary bypass graft; Z95.2 Presence of prosthetic heart valve; Z95.820 Peripheral vascular angioplasty status with implants and grafts; Z96.1 Presence of intraocular lens; Z96.642 Presence of left artificial hip joint; Z98.42 Cataract extraction status, left eye; Z98.41 Cataract extraction status, right eye; R25.2 Cramp and spasm
CPT/HCPCS: 36415; 80053; 83036; 83605; 85025; 85652; 86140; 87040; 96361; 96374; 99285

== ENCOUNTER → 2017-07-19 | Outpatient (CLI) | payer MEDICARE ==
[2017-07-19 08:04] LABS: ALT 36 U/L (21-72); AST 30 U/L (17-59); Alkaline Phosphatase 93 U/L (38-126); Anion Gap 12 mmol/L; Blood Urea Nitrogen 16 mg/dL (9-20); Calcium 9.2 mg/dL (8.4-10.2); Carbon Dioxide 27 mmol/L (22-30); Chloride 104 mmol/L (98-107); Cholesterol 161 mg/dL (<200); Glucose 197 mg/dL (74-99); HDL Cholesterol 40 mg/dL (40-60); LDL Cholesterol,Calculated 84 mg/dL (0-99); Potassium 4.7 mmol/L (3.5-5.1); Sodium 143 mmol/L (137-145); Total Bilirubin 0.5 mg/dL (0.2-1.3); Total Protein 6.4 g/dL (6.3-8.2); Triglycerides 184 mg/dL (<150)
== END | disposition home or self-care (01) ==
LOC: LABWHC1 07:19
PROVIDERS: ATTEND Internal Medicine Interventional Cardiology
DX: E78.2 Mixed hyperlipidemia (principal)
CPT/HCPCS: 36415; 80053; 80061

== ENCOUNTER → 2017-10-09 | Outpatient (CLI) | payer MEDICARE ==
[2017-10-09 07:47] LABS: ALT 35 U/L (21-72); AST 22 U/L (17-59); Albumin 3.9 g/dL (3.5-5.0); Alkaline Phosphatase 91 U/L (38-126); Anion Gap 6 mmol/L; Blood Urea Nitrogen 23 mg/dL (9-20); Calcium 9.3 mg/dL (8.4-10.2); Carbon Dioxide 27 mmol/L (22-30); Chloride 109 mmol/L (98-107); Cholesterol 162 mg/dL (<200); Glucose 158 mg/dL (74-99); HDL Cholesterol 39 mg/dL (40-60); LDL Cholesterol,Calculated 86 mg/dL (0-99); Potassium 5.4 mmol/L (3.5-5.1); Sodium 142 mmol/L (137-145); Total Bilirubin 0.4 mg/dL (0.2-1.3); Total Protein 6.3 g/dL (6.3-8.2); Triglycerides 184 mg/dL (<150)
== END | disposition home or self-care (01) ==
LOC: LABWHC1 07:09
PROVIDERS: ATTEND Internal Medicine Interventional Cardiology
DX: E78.2 Mixed hyperlipidemia (principal)
CPT/HCPCS: 36415; 80053; 80061

== ENCOUNTER → 2018-07-24 | Outpatient (CLI) | payer MEDICARE ==
[2018-07-24 17:03] LABS: Albumin 4.2 g/dL (3.80-4.90); Albumin/Globulin Ratio 2.33 (1.60-3.17); Anion Gap 8.2 mmol/L (4.00-12.00); Carbon Dioxide 26.8 mmol/L (21.6-31.8); Globulin 1.8 g/dL (1.6-3.3); LDL Cholesterol,Calculated 56.6 mg/dL (0.0-131.0); Potassium 4.6 mmol/L (3.5-5.5); Total Bilirubin 1.3 mg/dL (0.2-1.2); VLDL Calculation 13.4 mg/dL (5.00-40.00)
== END ==
LOC: LABWHC1 07:43
PROVIDERS: ATTEND Internal Medicine Interventional Cardiology
DX: E78.2 Mixed hyperlipidemia (principal)
CPT/HCPCS: 36415; 80053; 80061

== ENCOUNTER → 2018-08-13 | Outpatient (CLI) | payer MEDICARE ==
[2018-08-13 10:51] LABS: African American GFR (CKD) 103.4 (60.0-200.0); Albumin/Globulin Ratio 2.11 (1.60-3.17); Anion Gap 7.2 mmol/L (4.00-12.00); BUN/Creat Ratio 23.75 Ratio (12.00-20.00); Calcium 9.3 mg/dL (8.7-10.3); Carbon Dioxide 27.8 mmol/L (21.6-31.8); Globulin 1.9 g/dL (1.6-3.3); Potassium 4.8 mmol/L (3.5-5.5); Total Bilirubin 0.2 mg/dL (0.2-1.2); Total Protein 5.9 g/dL (6.2-8.2)
== END | disposition home or self-care (01) ==
LOC: LABWHC1 07:10
PROVIDERS: ATTEND Internal Medicine Interventional Cardiology
DX: I10 Essential (primary) hypertension (principal)
CPT/HCPCS: 36415; 80053

== ENCOUNTER → 2018-11-21 | Outpatient (CLI) | payer MEDICARE ==
[2018-11-21 08:53] LABS: HCT 40.8 % (39.0-53.0); HGB 14.2 gm/dL (13.0-17.5); MCH 32.8 pg (25.0-35.0); MCHC 34.8 g/dL (31.0-37.0); MCV 94.2 fL (80.0-100.0); Platelet Count 170 k/uL (150-450); RBC 4.33 m/uL (4.30-5.90); RDW 13.5 % (11.5-15.5); WBC 5.4 k/uL (3.8-10.6)
[2018-11-21 09:03] LABS: African American GFR (CKD) >90 (>60 ml/min/1.73 sqM); Anion Gap 8 mmol/L; Blood Urea Nitrogen 21 mg/dL (9-20); Carbon Dioxide 27 mmol/L (22-30); Chloride 105 mmol/L (98-107); Potassium 4.8 mmol/L (3.5-5.1); Sodium 140 mmol/L (137-145)
== END | disposition home or self-care (01) ==
LOC: LABPAT 08:22
PROVIDERS: ATTEND Internal Medicine Interventional Cardiology
DX: Z01.812 Encounter for preprocedural laboratory examination (principal); I25.718 Atherosclerosis of autologous vein coronary artery bypass graft(s) with other forms of angina pectoris
CPT/HCPCS: 36415; 80051; 82565; 84520; 85027

== ENCOUNTER 2018-11-26 10:51 | Day surgery (SDC) | payer MEDICARE ==
[~2018-11-26 10:51] MED LIST changes: +ALPRAZolam 0.5 MG TAB PO PRN; +ASPIRIN 325 MG TAB PO ONE; -ASPIRIN 325 MG TAB PO STA; +ATORVASTATIN 80 MG TAB PO ONE; +NITROGLYCERIN SL TABS 0.4 MG TAB SUBLINGUAL PRN
[2018-11-26 11:17] LABS: Glucose,Whole Blood 153 mg/dL (75-99)
[2018-11-26] MEDS ORDERED: SODIUM CHLORIDE 0.9% 1,000 ML IV ONE (11:33)
[2018-11-26] MEDS ORDERED: VERAPAMIL 2.5 MG/ML 2 ML AMP ONE (12:26)
[2018-11-26] MEDS ORDERED: LIDOCAINE 1% INJ 10MG/ML (20 ML MDV) ONE (12:26)
[2018-11-26] MEDS ORDERED: fentaNYL (PF) 50 MCG/ML 2 ML AMP IVP ONE (12:45)
[2018-11-26] MEDS ORDERED: fentaNYL (PF) 50 MCG/ML 2 ML AMP ONE (12:45)
[2018-11-26] MEDS ORDERED: LIDOCAINE 1% INJ 10MG/ML (20 ML MDV) SQ ONE ×2 (12:47→13:05)
[2018-11-26] MEDS ORDERED: IOPAMIDOL-370 125ML BTL INJ ONE (13:22)
[2018-11-26] MEDS ORDERED: amLODIPine 5 MG TAB ONE (13:24)
[2018-11-26] MEDS ORDERED: amLODIPine 5 MG TAB PO ONE (13:25)
[2018-11-26] MEDS ORDERED: HYDROcodone/APAP 10-325MG 1 EACH TAB PO PRN (13:38)
[2018-11-26] MEDS ORDERED: RX INFO: IV CONTRAST WAS GIVEN 1 EACH MISC MISCELLANE PRN (13:38)
[2018-11-26] MEDS ORDERED: SODIUM CHLORIDE 0.9% 1,000 ML IV SCH (13:45)
[2018-11-26] MEDS ORDERED: ISOSORBIDE MONONITRATE ER 60 MG TAB.ER.24H PO SCH (14:00)
[2018-11-26] MEDS ORDERED: LOSARTAN 50 MG TAB PO SCH (14:00)
[2018-11-26] MEDS: METOPROLOL TARTRATE 25 MG TAB PO SCH ×2 (15:02→19:52)
--- NOTE | 2018-11-26 15:40 | CC ---
CARDIAC CATHETERIZATION REPORT Mr. Garcia is a 73-year-old male with known history of coronary artery disease, status post coronary artery bypass grafting and aortic valve replacement, history of hypertension, hyperlipidemia, diabetes mellitus, and severe peripheral vascular disease who presented with symptoms of progressive angina pectoris. In view of that, recommendation made regarding cardiac catheterization. The procedure, risks and complication were discussed with the patient who is in full understanding and agreement. PROCEDURE: Patient was brought to the clinical laboratory assistant in a fasting semi-sedated state after receiving fentanyl and Benadryl and achieving moderate conscious sedated state. Attempts to cannulate the left radial artery were unsuccessful. At that point, using Xylocaine anesthesia and Seldinger technique, a 6-Samoan sheath was introduced in the left femoral artery. Selective right and left coronary angiography performed using 6-Samoan 4 bend right and left Angel catheter, multiple views of the coronary artery including hemiaxial views were obtained. Following that, a 6-Samoan NOA catheter was used to cannulate the PEDROZA to the LAD. Images of the grafts were obtained. Following that, catheter and sheath were removed. Hemostasis was obtained with compression of the left groin. There was no immediate complication. Patient is returned to his room in stable condition. FINDINGS: 1. FLUOROSCOPY: There was severe calcification involving all the coronary arteries. 2. LEFT MAIN: This is a large-sized vessel, bifurcating into left circumflex, left anterior descending artery. The left main is heavily calcified proximally, has a 40% plaque. The rest of the vessel has no high-grade stenosis. 3. LEFT ANTERIOR DESCENDING ARTERY: This vessel is totally occluded in the mid segment, takeoff of diagonal branch. There is competitive flow from the PEDROZA. The diagonal branch is small in caliber and has a diffuse disease proximally at the bifurcation, up to 90% in a heavily calcified segment. 4. LEFT CIRCUMFLEX: This vessel is totally occluded after giving rise to a small obtuse marginal branch. There was no antegrade flow. 5. RIGHT CORONARY ARTERY: This vessel is dominant, heavily calcified, has diffuse disease in the mid segment with area stenosis up to 70%. After the takeoff of the acute marginal branch, the vessel is totally occluded with no antegrade flow. 6. PEDROZA TO THE LAD: The distal anastomotic site is patent. The flow into the LAD is brisk. The retrograde flow is brisk. There is no evidence of stenosis. 7. COLLATERALS: There is collaterals from the LAD toward the distal right PDA. 8. LEFT VENTRICULOGRAM: Left ventriculogram is not performed. CONCLUSION: 1. Calcified coronary arteries. 2. Severe triple-vessel coronary artery disease with significant left main disease. 3. Patent PEDROZA to LAD. RECOMMENDATION: In view of finding anatomy, recommend continue medical therapy with aggressive risk modifications being initiated. There is no significant progression of disease compared with the images obtained in 2016. Those findings and recommendation were discussed with the patient and his family who are in full understanding and agreement. Duration of procedure is 39 minutes. MMODL / IJN: [id number] /
[2018-11-26] MEDS ORDERED: METHOCARBAMOL 750 MG TAB PO PRN (16:00)
[2018-11-26 16:43] LABS: Glucose,Whole Blood 163 mg/dL (75-99)
[2018-11-26 17:11] VITALS: BMI 34.3
[2018-11-26 20:14] LABS: Glucose,Whole Blood 215 mg/dL (75-99)
[2018-11-26 20:16] VITALS: BP 119/53; PULSE 55; RESP 18; TEMP 98.2
[2018-11-26] MEDS ORDERED: MONTELUKAST 10 MG TAB PO SCH (21:00)
[2018-11-26] MEDS ORDERED: ATORVASTATIN 80 MG TAB PO SCH (21:00)
[2018-11-26] MEDS ORDERED: INSULIN DETEMIR (LEVEMIR) 100 UNIT/ML SYR SQ SCH (21:00)
[2018-11-26] MEDS ORDERED: EZETIMIBE 10 MG TAB PO SCH (21:00)
[2018-11-27] MEDS ORDERED: SYMBICORT 160-4.5 MCG INHALER INHALATION SCH (08:00)
[2018-11-27] MEDS ORDERED: MULTIVITAMINS, THERA 1 EACH TAB PO SCH (09:00)
[2018-11-27] MEDS ORDERED: ASPIRIN 325 MG TAB PO SCH (09:00)
[2018-11-27] MEDS ORDERED: MAGNESIUM OXIDE 400 MG TAB PO SCH (09:00)
== END 2018-11-26 23:30 | disposition home or self-care (01) ==
LOC: CATHCVL 10:51 → 1SOBS 14:47 → CATHCVL 23:30
PROVIDERS: ATTEND Internal Medicine Interventional Cardiology
DX: I25.110 Atherosclerotic heart disease of native coronary artery with unstable angina pectoris (principal); I25.84 Coronary atherosclerosis due to calcified coronary lesion; I25.82 Chronic total occlusion of coronary artery; I10 Essential (primary) hypertension; Z87.891 Personal history of nicotine dependence; E78.2 Mixed hyperlipidemia; E78.00 Pure hypercholesterolemia, unspecified; E11.51 Type 2 diabetes mellitus with diabetic peripheral angiopathy without gangrene; Z95.1 Presence of aortocoronary bypass graft; Z95.2 Presence of prosthetic heart valve; I65.21 Occlusion and stenosis of right carotid artery; Z79.4 Long term (current) use of insulin; Z79.51 Long term (current) use of inhaled steroids; Z79.82 Long term (current) use of aspirin; Z79.899 Other long term (current) drug therapy
CPT/HCPCS: 93455; C1894 ×2; C1769; J2001; J3010; Q9967

== ENCOUNTER → 2018-12-23 | Outpatient (CLI) | payer MEDICARE ==
[2018-12-23 08:42] LABS: HCT 40.5 % (39.0-53.0); HGB 13.8 gm/dL (13.0-17.5); MCH 32.8 pg (25.0-35.0); MCHC 34.2 g/dL (31.0-37.0); MCV 95.8 fL (80.0-100.0); Mean Platelet Volume 7.4; Platelet Count 152 k/uL (150-450); RBC 4.22 m/uL (4.30-5.90); RDW 13.2 % (11.5-15.5); WBC 4.8 k/uL (3.8-10.6)
[2018-12-23 08:50] LABS: African American GFR (CKD) >90 (>60 ml/min/1.73 sqM); Anion Gap 8 mmol/L; Blood Urea Nitrogen 20 mg/dL (9-20); Carbon Dioxide 27 mmol/L (22-30); Chloride 105 mmol/L (98-107); Potassium 4.7 mmol/L (3.5-5.1); Sodium 140 mmol/L (137-145)
== END | disposition home or self-care (01) ==
LOC: LABPAT 08:03
PROVIDERS: ATTEND Internal Medicine Interventional Cardiology
DX: Z01.812 Encounter for preprocedural laboratory examination (principal); I70.213 Atherosclerosis of native arteries of extremities with intermittent claudication, bilateral legs
CPT/HCPCS: 36415; 80051; 82565; 84520; 85027

== ENCOUNTER → 2018-12-27 | Day surgery (SDC) | payer MEDICARE ==
[2018-12-25 08:38] VITALS: BMI 34.2
[~2018-12-27] MED LIST changes: -ALPRAZolam 0.5 MG TAB PO PRN; -ATORVASTATIN 80 MG TAB PO ONE; +IOPAMIDOL-250 100ML BTL INTRAARTER ONE; +ISOSORBIDE MONONITRATE ER 60 MG TAB.ER.24H PO SCH; +LOSARTAN 50 MG TAB PO SCH; +METOPROLOL TARTRATE 25 MG TAB PO SCH; +MIDAZOLAM 2 MG/2 ML VIAL IV ONE; -NITROGLYCERIN SL TABS 0.4 MG TAB SUBLINGUAL PRN; +SODIUM CHLORIDE 0.9% 1,000 ML IV ONE; +SODIUM CHLORIDE 0.9% 1,000 ML IV SCH
[2018-12-27 07:04] LABS: Glucose,Whole Blood 188 mg/dL (75-99)
[2018-12-27 07:16] VITALS: TEMP 98.1
--- NOTE | 2018-12-27 08:37 | P.PCN ---
Date of Procedure: 12/27/18 Operative Findings: AN ABDOMINAL AORTOGRAM AND BILATERAL LOWER EXTREMITIES RUNOFF PERFORMING PHYSICIAN: Chepe San MD PROCEDURE PERFORMED: 1. An abdominal aortogram 2. Bilateral lower extremities runoff INDICATION: This is a pleasant 73-year-old gentleman who sees Dr. Rodrigues in the office as an outpatient with history of peripheral revealed disease and prior angioplasty of the right femoral-pop bypass as well as left iliac artery was experiencing bilateral lower extremities intermittent claudication, Neil class IIa,. Because of that an angiogram with aortogram and lower extremities runoff was advised. COMPLICATION: None LEVEL OF SEDATION: Moderate was sedation length of 16 minutes APPROACH: Right common femoral artery PROCEDURE DESCRIPTION: After obtaining informed consent and explaining the procedure benefits, risks, and complications, the patient was brought to the cardiac filling station laborer. The right groin was prepped and draped in sterile fashion. The right common femoral artery was cannulated using micropuncture technique, under ultrasound guidance. A micropuncture wire was advanced, and the micropuncture sheath was advanced over the wire, then the micropuncture sheath was exchanged over an 0.35 wire into a 5-Polish sheath dilator assembly then the wire and dilator were removed and sheath was flushed. We did an abdominal aortogram and bilateral lower extremities runoff using 5- Polish pigtail catheter using a power injection. The catheter was initially placed at the level of the renal arteries, and it was pulled into above the bifurcation of the aorta into right and left common iliac arteries. The procedure was completed and there was no complications. SELECTIVE PERIPHERAL ANGIOGRAM: The abdominal aorta: Appears to be calcified was mild disease only. The common iliac arteries: Both appear to have mild disease only. The external iliac arteries: The right external iliac artery just above the inguinal ligament has eccentric plaque appears to be in the range of 60-70%. The left external iliac artery is a stented with mild disease only. The internal iliac arteries: Both are patent. The common femoral arteries: Both appear to have mild disease only. Superficial femoral arteries: The right SFA is occluded. The right fem-pop bypass is occluded from the ostium and reconstitutes distally. The left SFA is diffusely diseased and calcified up to 80% in the midportion. Popliteal arteries: Both appear to have [id number] disease only. Below the knees: There are 3 vessels run off below the knee bilaterally. CONCLUSION: Intermediate to severe disease involving the right external iliac artery Occluded right fem-pop bypass. Severe disease involving the left SFA POSTPROCEDURE MANAGEMENT: 1. Intravascular ultrasound of the right external iliac artery to assess the severity of the disease 2. FLAVORER of the right fem-pop bypass 3. FLAVORER of the left SFA
[2018-12-27 08:47] LABS: Glucose,Whole Blood 161 mg/dL (75-99)
[2018-12-27 11:37] LABS: Glucose,Whole Blood 185 mg/dL (75-99)
[2018-12-27 12:20] VITALS: RESP 18
[2018-12-27 12:32] VITALS: BP 138/61; PULSE 61
--- NOTE | 2018-12-30 15:56 | IR ---
EXAMINATION TYPE: IR angio abdominal w runoff DATE OF EXAM: 12/27/2018 COMPARISON: NONE HISTORY: Fluoroscopy time. Fluoroscopy was provided to the referring clinician.
== END | disposition home or self-care (01) ==
LOC: CATHCVL 06:10
PROVIDERS: ATTEND Internal Medicine Interventional Cardiology
DX: E11.51 Type 2 diabetes mellitus with diabetic peripheral angiopathy without gangrene (principal); I70.411 Atherosclerosis of autologous vein bypass graft(s) of the extremities with intermittent claudication, right leg; I70.212 Atherosclerosis of native arteries of extremities with intermittent claudication, left leg; I10 Essential (primary) hypertension; Z95.2 Presence of prosthetic heart valve; Z95.1 Presence of aortocoronary bypass graft; E78.2 Mixed hyperlipidemia; Z79.51 Long term (current) use of inhaled steroids; Z79.899 Other long term (current) drug therapy; Z79.82 Long term (current) use of aspirin; Z79.4 Long term (current) use of insulin
CPT/HCPCS: 36200; 75625; 75716; C1769 ×5; C1894; J2250; Q9966

== ENCOUNTER → 2019-01-22 | Outpatient (CLI) | payer MEDICARE ==
[2019-01-22 08:22] LABS: HCT 42.2 % (39.0-53.0); HGB 14.5 gm/dL (13.0-17.5); MCH 33.1 pg (25.0-35.0); MCHC 34.3 g/dL (31.0-37.0); MCV 96.3 fL (80.0-100.0); Mean Platelet Volume 8.5; Platelet Count 141 k/uL (150-450); RBC 4.39 m/uL (4.30-5.90); WBC 5.2 k/uL (3.8-10.6)
[2019-01-22 08:53] LABS: African American GFR (CKD) >90 (>60 ml/min/1.73 sqM); Anion Gap 8 mmol/L; Blood Urea Nitrogen 21 mg/dL (9-20); Carbon Dioxide 26 mmol/L (22-30); Chloride 105 mmol/L (98-107); Non-African American GFR(CKD) 90 (>60 ml/min/1.73 sqM); Potassium 4.8 mmol/L (3.5-5.1); Sodium 139 mmol/L (137-145)
== END | disposition home or self-care (01) ==
LOC: LABPAT 08:04
PROVIDERS: ATTEND Internal Medicine Interventional Cardiology
DX: Z01.812 Encounter for preprocedural laboratory examination (principal); I73.9 Peripheral vascular disease, unspecified
CPT/HCPCS: 36415; 80051; 82565; 84520; 85027

== ENCOUNTER 2019-01-29 08:36 | Day surgery (SDC) | payer MEDICARE ==
[~2019-01-29 08:36] MED LIST changes: -ALPRAZolam 0.25 MG TAB PO PRN; -ASPIRIN 325 MG TAB PO ONE; +ASPIRIN 325 MG TAB PO STA; -IOPAMIDOL-250 100ML BTL INTRAARTER ONE; -ISOSORBIDE MONONITRATE ER 60 MG TAB.ER.24H PO SCH; -LOSARTAN 50 MG TAB PO SCH; -METOPROLOL TARTRATE 25 MG TAB PO SCH; -MIDAZOLAM 2 MG/2 ML VIAL IV ONE; -SODIUM CHLORIDE 0.9% 1,000 ML IV ONE; -SODIUM CHLORIDE 0.9% 1,000 ML IV SCH
[2019-01-29] MEDS ORDERED: ISOSORBIDE MONONITRATE ER 60 MG TAB.ER.24H PO STA (09:05)
[2019-01-29] MEDS ORDERED: LOSARTAN 50 MG TAB PO STA (09:05)
[2019-01-29] MEDS ORDERED: SODIUM CHLORIDE 0.9% 1,000 ML IV ONE (09:21)
[2019-01-29 09:22] LABS: Glucose,Whole Blood 151 mg/dL (75-99)
[2019-01-29] MEDS: MIDAZOLAM 2 MG/2 ML VIAL IV ONE ×2 (11:18→11:41)
[2019-01-29] MEDS ORDERED: LIDOCAINE 1% INJ 10MG/ML (20 ML MDV) SQ ONE (11:20)
[2019-01-29] MEDS ORDERED: HEPARIN SODIUM 1,000 UN/ML (10ML VL) IV ONE ×2 (11:25→12:43)
[2019-01-29] MEDS ORDERED: HYDROmorphone 1 MG/ML 1 ML SYRINGE IVP ONE ×2 (11:40→12:08)
[2019-01-29] MEDS ORDERED: PROTAMINE SULFATE 10 MG/ML 5 ML VIAL IV ONE (12:30)
[2019-01-29] MEDS: NITROGLYCERIN 1000MCG/10ML SYRINGE INTRAARTER ONE ×2 (12:38→13:08)
[2019-01-29] MEDS: niCARdipine Syringe (1,000 mcg/10 mL) INTRAARTER ONE ×2 (12:39→13:08)
[2019-01-29] MEDS ORDERED: CLOPIDOGREL 75 MG TAB PO ONE (13:19)
[2019-01-29] MEDS ORDERED: IOPAMIDOL-250 100ML BTL INTRAARTER ONE (13:19)
[2019-01-29] MEDS ORDERED: SODIUM CHLORIDE 0.9% 1,000 ML IV SCH (13:30)
--- NOTE | 2019-01-29 15:03 | PTCA ---
PERCUTANEOUSTRANS CORORONARY ANGIOGRAPHY DATE OF SERVICE: 01/29/2019. PERFORMING PHYSICIAN: Chepe San MD. PROCEDURE PERFORMED: 1. Left lower extremity angiogram. 2. Selective right common femoral artery angiogram. 3. Atherectomy of the left popliteal and left SFA using the CSI orbital atherectomy device. 4. Successful balloon angioplasty of the left popliteal and left SFA using 6 x 250 mm Inpact drug coated balloon with an excellent angiographic results. 5. Successful stenting of the proximal left SFA using 8 x 140 mm Zilver PTX drug- coated stent with an excellent angiographic results. 6. Intravascular ultrasound IVUS of the left popliteal and left SFA. INDICATION: This is a 73-year-old gentleman who sees Dr. Rodrigues and Dr. Gonsales as an outpatient with history of hypertension and dyslipidemia and known history of peripheral arterial disease with prior right femoral-popliteal bypass and left iliac stenting as well as prior angioplasty of the right femoral-popliteal bypass present was experiencing bilateral lower extremities intermittent claudication, performed in class 2A. He underwent an aortogram with runoff, which revealed occluded right femoral-popliteal bypass with critical disease involving the left SFA. He was brought today to undergo a INDIRECT SALES EXEC of the left SFA. APPROACH: Right common femoral artery. COMPLICATION: Perforation of the right popliteal which was sealed using reversed of the heparin as well as balloon inflation neck. PROCEDURE DESCRIPTION: After obtaining an informed consent, the patient was brought to the cardiac cathode washer. The right common femoral artery was cannulated using micropuncture technique, the micropuncture wire passed easily, then I placed an 11 cm 6-Ghanaian sheath in the right common femoral artery. At that point, anticoagulation was initiated using heparin and the patient was given 56468 units of heparin IV. I did select the left SFA using 0.035 [place] Advantage wire with the backup support of 5- Ghanaian Rim catheter. Subsequently, I did exchange my 11 cm 6-Ghanaian sheath into 70 cm 6-Ghanaian Raabe sheath using 0.35 balloon. Subsequently, going up and over was extremely challenging because of the aortic bifurcation as well as because of the stent in the left iliac artery as well as extremely calcified iliacs and because of tortuosity. Finally I was able I was able to go up and over using the 0.35 Super core wire with a 6-Ghanaian multipurpose catheter. The tip of the sheath was positioned at the level of the left common femoral artery. At that point, I did perform left lower extremity angiogram which revealed 3 vessel runoff below the knee on the left side with extremely calcified left SFA and left popliteal. I did cross the lesions in the left SFA and left popliteal using a 0.[address] wire which was exchanged over 0.14 CXI catheter into a ViperWire preparing for rotational atherectomy using the CSI device. I did atherectomy of the left SFA and left popliteal using the orbital atherectomy device, which was run under low, medium, and high speed. Subsequently, I did balloon angioplasty using 6 x 250 mm balloon. The whole left popliteal and left SFA was ballooned. The following angiogram showed good angiographic results in the mid and distal left SFA with severe residual stenosis involving the proximal left SFA. I decided to do a drug coated balloon of the mid and distal left SFA and stent the proximal left SFA. I attempted advancing the drug-coated balloon which was 6 x 250 mm balloon, but I had difficulties and 0.35 wire came out. I attempted advancing the wire again, but I was unable in the area of the left popliteal. At that point, I took a picture through the balloon which showed extravasation and possible perforation of the left popliteal. At that point, I did reverse the heparin by giving the patient 50 of protamine and then I crossed the lesion again using 0.[address] wire and subsequently I inflated 5 x 60 mm balloon. The balloon was inflated for 3 minutes. The following angiogram showed hemostasis with sealing of the perforation. At that point, I did change my 0.014 wire into 0.35 wire which was a Super core wire using 0.035 CXI catheter. Then I advanced a PCP balloon again and I did balloon angioplasty of the popliteal as well as distal and mid left SFA with the following angiogram showing good angiographic results with residual diffuse stenosis of about 30%-40%, but good flow. For the proximal left SFA, I deployed 7 x 140 mm Zilver PTX drug-coated stent where the stent was positioned under fluoroscopy guidance and subsequently deployed under fluoroscopy guidance. I post-dilated the stent using 7 mm balloon. The following angiogram showed good angiographic results. By the end, I did an angiogram of the left iliac artery to assess the stent, which we struggled going through it and that showed good angiographic results. Subsequently, I exchanged my 70 cm 6-Ghanaian Raabe sheath into 11 cm 6-Ghanaian sheath using 0.35 super core wire. I did by the end selective right common femoral artery angiogram. Please note that after the perforation was sealed, there was suspicion that there was a flap in the left popliteal, but I confirmed that there is no flap by using IVUS of the left popliteal. POSTPROCEDURE MANAGEMENT: 1. Dual anti-platelet therapy. 2. Risk factors modifications. 3. Follow up with the patient. DELVIN / DORIN: [id number] /
[2019-01-29 16:04] LABS: Glucose,Whole Blood 135 mg/dL (75-99)
[2019-01-29] MEDS: INSULIN ASPART (NovoLOG) 100 UNIT/ML VIAL SQ SCH ×2 (19:37→20:54)
[2019-01-29] MEDS: HYDROcodone/APAP 10-325MG 1 EACH TAB PO SCH ×2 (19:37→20:15)
[2019-01-29] MEDS: METOPROLOL TARTRATE 25 MG TAB PO SCH (20:14)
[2019-01-29 20:52] LABS: Glucose,Whole Blood 229 mg/dL (75-99)
[2019-01-29] MEDS ORDERED: MONTELUKAST 10 MG TAB PO SCH (21:00)
[2019-01-29] MEDS ORDERED: EZETIMIBE 10 MG TAB PO SCH (21:00)
[2019-01-29] MEDS ORDERED: ATORVASTATIN 80 MG TAB PO SCH (21:00)
[2019-01-29 21:41] VITALS: RESP 18
[2019-01-30 06:18] LABS: Glucose,Whole Blood 177 mg/dL (75-99)
[2019-01-30 06:46] LABS: Basophils % (A) 1 %; Eosinophils # (A) 0.2 k/uL (0-0.7); Eosinophils % (A) 4 %; HCT 42.7 % (39.0-53.0); HGB 14.8 gm/dL (13.0-17.5); Lymphocytes # (A) 0.7 k/uL (1.0-4.8); Lymphocytes % (A) 16 %; MCH 32.9 pg (25.0-35.0); MCHC 34.6 g/dL (31.0-37.0); MCV 95.2 fL (80.0-100.0); Mean Platelet Volume 7.6; Monocytes # (A) 0.3 k/uL (0-1.0); Monocytes % (A) 8 %; Neutrophils # (A) 2.9 k/uL (1.3-7.7); Neutrophils % (A) 69 %; Platelet Count 132 k/uL (150-450); RBC 4.49 m/uL (4.30-5.90); RDW 13.3 % (11.5-15.5); WBC 4.3 k/uL (3.8-10.6)
[2019-01-30 06:57] LABS: African American GFR (CKD) >90 (>60 ml/min/1.73 sqM); Anion Gap 7 mmol/L; Blood Urea Nitrogen 17 mg/dL (9-20); Calcium 9.3 mg/dL (8.4-10.2); Carbon Dioxide 26 mmol/L (22-30); Chloride 103 mmol/L (98-107); Glucose 167 mg/dL (74-99); Non-African American GFR(CKD) >90 (>60 ml/min/1.73 sqM); Potassium 4.6 mmol/L (3.5-5.1); Sodium 136 mmol/L (137-145)
[2019-01-30] MEDS: INSULIN ASPART (NovoLOG) 100 UNIT/ML VIAL SQ SCH (07:02)
[2019-01-30] MEDS ORDERED: SYMBICORT 160-4.5 MCG INHALER INHALATION SCH (08:00)
[2019-01-30] MEDS ORDERED: ISOSORBIDE MONONITRATE ER 60 MG TAB.ER.24H PO SCH (09:00)
[2019-01-30] MEDS ORDERED: MULTIVITAMINS, THERA 1 EACH TAB PO SCH (09:00)
[2019-01-30] MEDS ORDERED: CLOPIDOGREL 75 MG TAB PO SCH (09:00)
[2019-01-30] MEDS ORDERED: LOSARTAN 50 MG TAB PO SCH (09:00)
[2019-01-30] MEDS ORDERED: MAGNESIUM OXIDE 400 MG TAB PO SCH (09:00)
[2019-01-30] MEDS ORDERED: ASPIRIN 325 MG TAB PO SCH (09:00)
[2019-01-30] MEDS: METOPROLOL TARTRATE 25 MG TAB PO SCH (09:38)
[2019-01-30] MEDS: HYDROcodone/APAP 10-325MG 1 EACH TAB PO SCH (09:38)
--- NOTE | 2019-01-30 09:57 | IR ---
EXAMINATION TYPE: IR well logging captain femoral popliteal DATE OF EXAM: 01/29/2019 COMPARISON: NONE HISTORY: Fluoroscopy time. Fluoroscopy was provided to the referring clinician.
[2019-01-30 11:37] VITALS: BP 156/71; PULSE 62; TEMP 98.1
--- NOTE | 2019-01-31 20:59 | DS ---
DISCHARGE SUMMARY ADMISSION DATE: January 29, 2019 DISCHARGE DATE: January 30, 2019 BRIEF HISTORY: This is a very pleasant 74-year-old gentleman who sees Dr. Rodrigues in the office as an outpatient who was admitted to the hospital and underwent successful ACCOUNTANT ASSISTANT of the left SFA. He underwent successful atherectomy and balloon angioplasty and stenting of the left SFA. The procedure was performed from the right groin. The patient was seen the following day. The right groin is soft and nontender and without any bruises. The patient is going to be discharged home on dual anti-platelet therapy and statin and I will follow up with him next week in the office to schedule him to undergo a ACCOUNTANT ASSISTANT of the right SFA. MMSANDYL / IJN: [id number] /
== END 2019-01-30 11:04 | disposition home or self-care (01) ==
LOC: CATHCVL 08:36 → 3SCARD 16:55 → CATHCVL 01-30 11:04
PROVIDERS: ATTEND Internal Medicine Interventional Cardiology
DX: E11.51 Type 2 diabetes mellitus with diabetic peripheral angiopathy without gangrene (principal); I70.212 Atherosclerosis of native arteries of extremities with intermittent claudication, left leg; I70.311 Atherosclerosis of unspecified type of bypass graft(s) of the extremities with intermittent claudication, right leg; I10 Essential (primary) hypertension; E78.2 Mixed hyperlipidemia; F17.210 Nicotine dependence, cigarettes, uncomplicated; Z79.51 Long term (current) use of inhaled steroids; Z95.1 Presence of aortocoronary bypass graft; Z95.4 Presence of other heart-valve replacement; Z79.82 Long term (current) use of aspirin; Z79.4 Long term (current) use of insulin; Z79.899 Other long term (current) drug therapy
CPT/HCPCS: 94640; 37227; 85347 ×3; 37252; 80048; 85025; C1894 ×2; C1714; C1769 ×5; C1725 ×4; C1753; C1874; C2623; J2250; J2720; J2001; J1644; J1170; Q9966

== ENCOUNTER → 2019-04-25 | Outpatient (CLI) | payer OTHER ==
[2019-04-25 16:06] LABS: African American GFR (CKD) 97.9 (60.0-200.0); Albumin 4.4 g/dL (3.80-4.90); Albumin/Globulin Ratio 2.1 (1.60-3.17); Anion Gap 5.2 mmol/L (4.00-12.00); BUN/Creat Ratio 13.33 Ratio (12.00-20.00); Calcium 9.8 mg/dL (8.7-10.3); Carbon Dioxide 31.8 mmol/L (21.6-31.8); Chol/HDL Ratio 3.79; Globulin 2.1 g/dL (1.6-3.3); LDL Cholesterol,Calculated 73.2 mg/dL (0.0-131.0); Non-African American GFR(CKD) 84.4 (60.0-200.0); Potassium 5.5 mmol/L (3.5-5.5); Total Bilirubin 0.9 mg/dL (0.3-1.2); Total Protein 6.5 g/dL (6.2-8.2); VLDL Calculation 32.8 mg/dL (5.00-40.00)
== END | disposition home or self-care (01) ==
LOC: LABWHC1 08:22
PROVIDERS: ATTEND Internal Medicine Interventional Cardiology
DX: E78.2 Mixed hyperlipidemia (principal)
CPT/HCPCS: 36415; 80053; 80061

== ENCOUNTER 2019-05-30 12:01 | Emergency (ER) | payer MEDICARE ==
[2019-05-30 12:09] VITALS: BP 123/82; PULSE 70; RESP 20; TEMP 98
[2019-05-30] MEDS ORDERED: LIDOCAINE 1%-EPI 1:100,000 20 ML VIAL SQ STA (12:23)
[2019-05-30] MEDS ORDERED: DIPH,PERTUS(ACELL)TETVAC-LF 0.5 ML VIAL IM ONE (12:23)
--- NOTE | 2019-05-30 12:25 | ED ---
General Adult HPI - General Chief complaint: Wound/Laceration Stated complaint: Hand lac Time Seen by Provider: 05/30/19 12:09 Source: patient, RN notes reviewed Mode of arrival: ambulatory Limitations: no limitations - History of Present Illness Initial comments: 74-year-old male presents to the emergency department for treatment of laceration. Patient states he was trying to cut a box when he accidentally cut the dorsum of his left hand with a box liner. Patient states he takes Plavix and it was significantly bleeding. He denies any pulsatile bleeding. Denies any difficulty moving the fingers. States that he is unsure as to whether he is up-to-date on his tetanus shot within the past 5 years. Patient denies any other injuries.Patient has no other complaints at this time including shortness of breath, chest pain, abdominal pain, nausea or vomiting, headache, or visual changes. - Related Data Home Medications Medication Instructions Recorded Confirmed Metoprolol Tartrate [Lopressor] 75 mg PO BID 04/23/15 01/29/19 Montelukast [Singulair] 10 mg PO HS 04/23/15 01/29/19 Atorvastatin [Lipitor] 80 mg PO HS 06/30/16 01/29/19 Magnesium Oxide [Mag-Ox] 400 mg PO DAILY 06/30/16 01/29/19 Aspirin EC [Ecotrin] 325 mg PO DAILY 06/22/17 01/29/19 Isosorbide Mononitrate ER [Imdur] 120 mg PO DAILY 06/22/17 01/29/19 Losartan Potassium 100 mg PO DAILY 06/22/17 01/29/19 Multivit-Min/FA/Lycopen/Lutein 1 tab PO DAILY 06/22/17 01/29/19 [Centrum Silver Men Tablet] Budesonide/Formoterol Fumarate 1 puff INHALATION DAILY 11/22/18 01/29/19 [Symbicort 160-4.5 Mcg Inhaler] Ezetimibe [Zetia] 10 mg PO HS 11/22/18 01/29/19 HYDROcodone/APAP 10-325MG [[place] 1 tab PO QID 11/22/18 01/29/19 10-325] Insulin Aspart [NovoLOG] 0 units SQ ACHS PRN 11/22/18 01/29/19 Insulin Glargine [Lantus] 65 - 70 unit SQ HS 11/22/18 01/29/19 rOPINIRole HCL [Requip] 0.5 mg PO TID 11/22/18 01/29/19 Previous Rx's Medication Instructions Recorded Clopidogrel [Plavix] 75 mg PO DAILY #90 tab 01/30/19 Allergies Allergy/AdvReac Type Severity Reaction Status Date / Time No Known Allergies Allergy Verified 05/30/19 12:09 Review of Systems ROS Statement: Those systems with pertinent positive or pertinent negative responses have been documented in the HPI. ROS Other: All systems not noted in ROS Statement are negative. Past Medical History Past Medical History: Asthma, Coronary Artery Disease (CAD), CVA/TIA, Diabetes Mellitus, Hyperlipidemia, Hypertension, Osteoarthritis (OA), Sleep Apnea/CPAP/BIPAP, Vascular Disorder Additional Past Medical History / Comment(s): CAD status post CABG with SVG to OM 2 and SVG to RCA in 1998 and 2009, AVR, PAD,diabetic neuropathy.murmur, "told he had a stroke and occ will still slur a word here and there, has cpap machine History of Any Multi-Drug Resistant Organisms: None Reported Past Surgical History: Adenoidectomy, Cardiac Valve Replacement, Coronary Bypass/CABG, Heart Catheterization, Joint Replacement, Tonsillectomy Additional Past Surgical History / Comment(s): CABG 2 SVG to OM 2 and SVG to RCA, AVR, right leg femoral pop bypass 1995, left PTBA 1995, aortic stent, colonoscopy 2012 showed colonic polyps, left carotid endarterectomy 1998. TOTAL LEFT HIP, JESSEE CATARACT SX-lens implants Past Anesthesia/Blood Transfusion Reactions: No Reported Reaction Past Psychological History: No Psychological Hx Reported Smoking Status: Former smoker Past Alcohol Use History: None Reported Past Drug Use History: None Reported - Past Family History Mother Family Medical History: Cancer, Pulmonary Embolus Additional Family Medical History / Comment(s): ESOPHAGEAL CANCER. Father Family Medical History: Coronary Artery Disease (CAD), Diabetes Mellitus Brother(s) Family Medical History: No Reported History Sister(s) Family Medical History: No Reported History Son(s) Family Medical History: Cancer Additional Family Medical History / Comment(s): Kidney cancer. Daughter(s) Family Medical History: No Reported History General Exam Limitations: no limitations General appearance: alert, in no apparent distress Head exam: Present: atraumatic, normocephalic, normal inspection Eye exam: Present: normal appearance, PERRL, EOMI. Absent: scleral icterus, conjunctival injection, periorbital swelling ENT exam: Present: normal exam, mucous membranes moist Neck exam: Present: normal inspection, full ROM. Absent: tenderness, meningismus, lymphadenopathy Respiratory exam: Present: normal lung sounds bilaterally. Absent: respiratory distress, wheezes, rales, rhonchi, stridor Cardiovascular Exam: Present: regular rate, normal rhythm, normal heart sounds. Absent: systolic murmur, diastolic murmur, rubs, gallop, clicks Extremities exam: Present: normal capillary refill (cap refill < 2 seconds in all digits of the left hand), other (pt has a 2 cm laceration noted to the lateral aspect of the dorsum of the left hand. This does not involve tendon. Bleeding has actually ceased.) Course Vital Signs 05/30/19 12:07 Temperature 98.0 F Pulse Rate 70 Respiratory 20 Rate Blood Pressure 123/82 O2 Sat by Pulse 99 Oximetry Procedures - Laceration Laceration #1 Consent Obtained: verbal consent Indication: laceration Site: hand Size (cm): 2 Description: linear Depth: simple, single layer Anesthetic Used: lidocaine 1%, with epi Anesthesia Technique: local infiltration Amount (mls): 3 Pre-repair: wound explored, irrigated extensively, deep structures intact (no evidence for tendon injury) Type of Sutures: other Size of Sutures: 5-0 Number of Sutures: 3 Technique: simple, interrupted Patient Tolerated Procedure: well, no complications Medical Decision Making - Medical Decision Making Patient is a 2 cm laceration to the dorsum of the lateral aspect of the left hand. This does not involve or other deep structure injuries. Bleeding is controlled prior to arrival. Wound was repaired using 3 simple interrupted sutures. He did have additional bleeding after cleaning this area however direct pressure was applied and this ceased. Disposition Clinical Impression: Laceration Disposition: HOME SELF-CARE Condition: Good Instructions (If sedation given, give patient instructions): Laceration (ED), Care For Your Stitches (ED) Additional Instructions: If you have any additional bleeding apply direct pressure for 20 minutes. If you cannot get bleeding to stop return to the emergency department. Otherwise keep the area clean. Monitor for signs of infection such as spreading or streaking redness, drainage, fever. Follow up with primary care in 1-2 days for recheck. Stitches should be removed in 7-10 days. Return to the emergency department for this. Is patient prescribed a controlled substance at d/c from ED?: No Referrals: Slade Gonsales MD [Primary Care Provider] - 1-2 days Time of Disposition: 12:47
== END 2019-05-30 13:01 | disposition home or self-care (01) ==
LOC: EC 12:01
DX: S61.412A Laceration without foreign body of left hand, initial encounter (principal); Z23 Encounter for immunization; J45.909 Unspecified asthma, uncomplicated; I25.10 Atherosclerotic heart disease of native coronary artery without angina pectoris; I10 Essential (primary) hypertension; G47.30 Sleep apnea, unspecified; E78.5 Hyperlipidemia, unspecified; E11.40 Type 2 diabetes mellitus with diabetic neuropathy, unspecified; E11.51 Type 2 diabetes mellitus with diabetic peripheral angiopathy without gangrene; Z79.4 Long term (current) use of insulin; Z79.51 Long term (current) use of inhaled steroids; Z79.899 Other long term (current) drug therapy; Z95.1 Presence of aortocoronary bypass graft; Z95.2 Presence of prosthetic heart valve; Z86.73 Personal history of transient ischemic attack (TIA), and cerebral infarction without residual deficits; Z87.891 Personal history of nicotine dependence; W27.8XXA Contact with other nonpowered hand tool, initial encounter
CPT/HCPCS: 12001; 90471; 90715; 99282

== ENCOUNTER → 2019-06-04 | Outpatient (CLI) | payer MEDICARE ==
[2019-06-04 08:54] LABS: HCT 39.2 % (39.0-53.0); HGB 13.2 gm/dL (13.0-17.5); MCH 31.5 pg (25.0-35.0); MCHC 33.8 g/dL (31.0-37.0); MCV 93.3 fL (80.0-100.0); Mean Platelet Volume 9.4; Platelet Count 172 k/uL (150-450); RDW 13.8 % (11.5-15.5); WBC 4.1 k/uL (3.8-10.6)
[2019-06-04 09:08] LABS: African American GFR (CKD) >90 (>60 ml/min/1.73 sqM); Anion Gap 8 mmol/L; Blood Urea Nitrogen 17 mg/dL (9-20); Carbon Dioxide 27 mmol/L (22-30); Chloride 105 mmol/L (98-107); Non-African American GFR(CKD) >90 (>60 ml/min/1.73 sqM); Potassium 4.5 mmol/L (3.5-5.1); Sodium 140 mmol/L (137-145)
== END | disposition home or self-care (01) ==
LOC: LABPAT 08:17
PROVIDERS: ATTEND Internal Medicine Interventional Cardiology
DX: Z01.818 Encounter for other preprocedural examination (principal); I73.9 Peripheral vascular disease, unspecified
CPT/HCPCS: 36415; 80051; 82565; 84520; 85027

== ENCOUNTER 2019-06-18 06:03 | Day surgery (SDC) | payer MEDICARE, OTHER ==
[2019-06-16 08:28] VITALS: BMI 32.8
[2019-06-18] MEDS ORDERED: SODIUM CHLORIDE 0.9% 1,000 ML in EMPTY BAG 1 BAG IV ONE (06:10)
[2019-06-18] MEDS ORDERED: ALPRAZolam 0.5 MG TAB PO PRN (06:10)
[2019-06-18] MEDS ORDERED: ASPIRIN 325 MG TAB PO STA (06:10)
[2019-06-18] MEDS ORDERED: SODIUM CHLORIDE 0.9% 1,000 ML IV ONE (07:07)
[2019-06-18 07:09] LABS: Glucose,Whole Blood 146 mg/dL (75-99)
[2019-06-18 07:13] VITALS: TEMP 97.5
[2019-06-18] MEDS ORDERED: LIDOCAINE 1% INJ 10MG/ML (20 ML MDV) SQ ONE (07:44)
[2019-06-18] MEDS ORDERED: MIDAZOLAM 2 MG/2 ML VIAL IV ONE (07:44)
[2019-06-18] MEDS ORDERED: HEPARIN SODIUM 1,000 UN/ML (10ML VL) IV ONE (07:55)
[2019-06-18] MEDS: niCARdipine Syringe (1,000 mcg/10 mL) INTRAARTER ONE ×2 (08:36→08:57)
[2019-06-18] MEDS ORDERED: NITROGLYCERIN 1000MCG/10ML SYRINGE INTRAARTER ONE (08:57)
[2019-06-18] MEDS: fentaNYL (PF) 50 MCG/ML 2 ML AMP IV ONE ×2 (09:07→09:24)
[2019-06-18] MEDS ORDERED: IOPAMIDOL-370 100ML BTL INJ ONE (09:24)
[2019-06-18] MEDS ORDERED: CLOPIDOGREL 75 MG TAB PO ONE (09:24)
[2019-06-18] MEDS ORDERED: SODIUM CHLORIDE 0.9% 1,000 ML in EMPTY BAG 1 BAG IV SCH (09:30)
[2019-06-18] MEDS ORDERED: LOSARTAN 50 MG TAB PO SCH (10:00)
[2019-06-18] MEDS ORDERED: ISOSORBIDE MONONITRATE ER 60 MG TAB.ER.24H PO SCH (10:00)
--- NOTE | 2019-06-18 10:08 | IR ---
Fluoroscopy HISTORY: Peripheral vascular occlusive disease, right leg pain 108.4 minutes fluoroscopy time supplied to the referring clinician. 580 intraoperative C-arm images document the procedure. See dictated report from cardiology.
[2019-06-18] MEDS ORDERED: ATROPINE SULFATE 0.1 MG/ML 10ML SYRINGE ONE (10:09)
--- NOTE | 2019-06-18 12:42 | P.PCN ---
Date of Procedure: 06/18/19 Operative Findings: Percutaneous Peripheral Arterial Intervention Performing physician Chepe San MD. Procedure performed 1. Right lower extremity angiogram 2. Intravascular ultrasound (IVUS) of the right Popliteal, Fem-Pop Bypass, and Common Femoral Artery 3. An atherectomy of the right Popliteal using the Hawk one device 4. Successful stenting of the right Popliteal and distal Fem-Pop Bypass using 6.0 x 140 mm Zilver PTX drug-coated stent with an excellent angiographic results with reduction of stenosis from 80% to 0% 5. Successful balloon angioplasty of the right Fem-Pop Bypass using 5 mm x 200 mm balloon with an excellent angiographic results and reduction of stenosis from 100% to 0% 6. Selective left Common Femoral Artery angiogram Indication This is a pleasant 74-year-old gentleman who sees Dr. Rodrigues in the past with known history of peripheral arterial disease who was experiencing bilateral lower extremities intermittent claudication. He underwent an angiogram and that revealed occluded right femoropopliteal bypass and critical disease involving the left SFA he underwent a YOUTUBER of the left SFA and was brought today to undergo an YOUTUBER of the right femoropopliteal bypass Approach Left common femoral artery Complications None Level of sedation Moderate with a sedation length of 90 minutes Procedure description After obtaining an informed consent the patient was brought to the cardiac Assistant [employer]ant [employer]. The left common femoral artery was cannulated using micropuncture technique under ultrasound guidance, the micropuncture wire passed easily then I placed an 11 cm 6 [place] sheath at the left common femoral artery I did advance an 035 glide advantage wire to the right SFA with a backup support of 5 [place] rim catheter. Subsequently I did exchange my 11 cm 6 [place] sheath into 70 cm 60 [place] Steve sheath and the tip of the sheath was positioned at the level of the right common femoral artery. At that point anticoagulation was initiated using heparin and the patient was given a weight-based heparin with continuous ACT monitoring throughout the procedure. I did right lower extremity angiogram which revealed 3 vessels runoff below the knee on the right side with a critical disease involving the right popliteal with eccentric calcified lesion and also occluded femoropopliteal bypass on long segment from the ostium all the way to the popliteal. Also the angiogram showed intermediate to severe eccentric calcified lesion involving the distal right external iliac artery/proximal right common femoral artery. I did cross the chronic total occlusion of the right femoropopliteal bypass using 018 gold tip Glidewire with a backup support of 1 8 CXI catheter. The wire across the lesion very smoothly and the wire was advanced all the way to the distal right popliteal below the knee. The catheter was advanced over the wire to the distal right popliteal. Subsequently I pulled the wire out and I did injection of contrast through the catheter to prove that I was in the true lumen. I did place an 018 hydro-ST wire. I did intravascular ultrasound which showed what it seems to be chronic clot in the right femoropopliteal bypass along with severe eccentric lesion involving the right popliteal distal to the anastomosis. For the lesion in the right popliteal I did atherectomy using the [employer] device. I was able to extract the plaque from it. I did balloon angioplasty using 5 mm x 200 mm balloon of the right popliteal and right femoropopliteal bypass. The following angiogram showed good angiographic results for the midshaft of the right femoropopliteal bypass. The right popliteal lesion continues to be tight and very concerning and the proximal anastomosis of the right femoropopliteal bypass continues to be concerning as well. At that point I decided to stent the right popliteal and the distal portion of the right femoral bypass. I did advance 6.0 x 140 mm Zilver PTX drug-coated stent where the stent was positioned under fluoroscopy guidance and deployed under fluoroscopy guidance. I postdilated the stent using 5 mm balloon with the following angiogram showing excellent angiographic results. For the lesion in the proximal anastomosis of the right femoropopliteal bypass I did use an angiosculp balloon which was 6 mm x 40 mm balloon. Again the following angiogram after that showed excellent angiographic results. I did take selective picture of the right common femoral artery which showed intermediate to severe lesion there. The lesion was very eccentric and calcified. I decided to do IVUS of that lesion. The IVUS revealed that the lesion is in the range of 60 to 70%. Subsequently I did exchange my long sheath into short sheath using 035 wire. Then I did selective left common femoral artery angiogram. The procedure was completed without any complication Postprocedure management 1. Dual antiplatelet therapy 2. Oral anticoagulation 3. Risk factors modification 4. Close monitoring the lesion at the right common femoral artery
[2019-06-18] MEDS ORDERED: hydrALAZINE HCL 20 MG/ML 1 ML VIAL IVP STA (12:58)
[2019-06-18] MEDS ORDERED: HYDROcodone/APAP 10-325MG 1 EACH TAB PO SCH (13:00)
[2019-06-18 14:47] VITALS: RESP 16
[2019-06-18 16:24] VITALS: BP 144/67; PULSE 64
[2019-06-18] MEDS ORDERED: ATORVASTATIN 80 MG TAB PO SCH (21:00)
[2019-06-18] MEDS ORDERED: METOPROLOL TARTRATE 25 MG TAB PO SCH (21:00)
[2019-06-18] MEDS ORDERED: MONTELUKAST 10 MG TAB PO SCH (21:00)
[2019-06-18] MEDS ORDERED: EZETIMIBE 10 MG TAB PO SCH (21:00)
[2019-06-19] MEDS ORDERED: SYMBICORT 160-4.5 MCG INHALER INHALATION SCH (08:00)
[2019-06-19] MEDS ORDERED: ASPIRIN 325 MG TAB PO SCH (09:00)
[2019-06-19] MEDS ORDERED: MULTIVITAMINS, THERA 1 EACH TAB PO SCH (09:00)
[2019-06-19] MEDS ORDERED: MAGNESIUM OXIDE 400 MG TAB PO SCH (09:00)
[2019-06-19] MEDS ORDERED: CLOPIDOGREL 75 MG TAB PO SCH (09:00)
== END 2019-06-18 18:03 | disposition home or self-care (01) ==
LOC: CATHCVL 06:03
PROVIDERS: ATTEND Internal Medicine Interventional Cardiology
DX: E11.51 Type 2 diabetes mellitus with diabetic peripheral angiopathy without gangrene (principal); I70.212 Atherosclerosis of native arteries of extremities with intermittent claudication, left leg; I70.311 Atherosclerosis of unspecified type of bypass graft(s) of the extremities with intermittent claudication, right leg; I70.92 Chronic total occlusion of artery of the extremities; Z79.4 Long term (current) use of insulin; I25.10 Atherosclerotic heart disease of native coronary artery without angina pectoris; I10 Essential (primary) hypertension; Z72.0 Tobacco use; E78.2 Mixed hyperlipidemia; Z95.820 Peripheral vascular angioplasty status with implants and grafts; Z98.890 Other specified postprocedural states; I65.21 Occlusion and stenosis of right carotid artery; R01.1 Cardiac murmur, unspecified; Z95.5 Presence of coronary angioplasty implant and graft; Z95.2 Presence of prosthetic heart valve; Z79.02 Long term (current) use of antithrombotics/antiplatelets; Z79.82 Long term (current) use of aspirin; Z79.51 Long term (current) use of inhaled steroids; Z79.899 Other long term (current) drug therapy
CPT/HCPCS: 37227; 37252; 37253; C1894 ×2; C1725 ×2; C1769 ×5; C1714; C1753; C1874; J2250; J0360; J2001; J3010; J1644; Q9967

== ENCOUNTER → 2019-10-16 | Outpatient (CLI) | payer MEDICARE ==
[2019-10-16 16:57] LABS: Chol/HDL Ratio 2.66; LDL Cholesterol,Calculated 53.6 mg/dL (0.0-131.0); VLDL Calculation 14.4 mg/dL (5.00-40.00)
== END | disposition home or self-care (01) ==
LOC: LABWHC1 08:27
PROVIDERS: ATTEND Internal Medicine Interventional Cardiology
DX: E78.2 Mixed hyperlipidemia (principal)
CPT/HCPCS: 36415; 80061

== ENCOUNTER → 2020-03-05 | Outpatient (CLI) | payer MEDICARE ==
[2020-03-05 17:25] LABS: Albumin/Globulin Ratio 2.11 (1.60-3.17); Anion Gap 7.9 mmol/L (4.00-12.00); BUN/Creat Ratio 23.75 Ratio (12.00-20.00); Calcium 9.1 mg/dL (8.7-10.3); Carbon Dioxide 27.1 mmol/L (21.6-31.8); Chol/HDL Ratio 2.84; Globulin 1.9 g/dL (1.6-3.3); LDL Cholesterol,Calculated 65.6 mg/dL (0.0-131.0); Potassium 4.7 mmol/L (3.5-5.5); Total Bilirubin 0.6 mg/dL (0.3-1.2); Total Protein 5.9 g/dL (6.2-8.2); VLDL Calculation 15.4 mg/dL (5.00-40.00)
== END | disposition home or self-care (01) ==
LOC: LABWHC1 08:15
PROVIDERS: ATTEND Internal Medicine Interventional Cardiology
DX: E78.2 Mixed hyperlipidemia (principal)
CPT/HCPCS: 36415; 80053; 80061